=== PATIENT | female | born 1940 | race Caucasian/White ===

== ENCOUNTER 2018-05-12 02:09 | Emergency (ER) | payer OTHER ==
[2018-05-12] MEDS ORDERED: IPRATROPIUM BROM 0.5MG/2.5ML ONE (02:46)
[2018-05-12] MEDS ORDERED: ALBUTEROL 2.5 MG/3 ML NEB SOL ONE (02:46)
[2018-05-12] MEDS ORDERED: METHYLPREDNISOLONE 125 MG INJ ONE (02:46)
[2018-05-12 02:57] LABS: Arterial Blood Carboxyhemoglob 2.5 % (0-1.5); Blood O2 Saturation 88.3 % (92-98.5)
[2018-05-12 03:41] LABS: Absolute Lymphocytes (CBC) 5.1 K/uL (0.7-4.9); Absolute Monocytes 0.9 K/uL (0.1-1.3); Absolute Neutrophil 3.6 K/uL (1.8-8.0); Basophils % 0.4 % (0-1.3); Eosinophils % 1.2 % (0-4.4); Hematocrit 49.1 % (36.0-45.0); Lymphocytes % 52.3 % (15.3-44.8); MCH 31.8 pg (27.0-35.0); MCV 94.3 fL (80-100); MPV 8.5 fL (7.6-11.3); Monocytes % 8.8 % (3.3-12.3); RBC Red Blood Cell Count 5.21 M/uL (3.86-4.86)
[2018-05-12 03:43] LABS: Protime INR 0.92
[2018-05-12 04:03] LABS: Urine Blood NEGATIVE (NEG); Urine Glucose NEGATIVE (NEG); Urine Protein NEGATIVE (NEG)
[2018-05-12 04:03] LABS: ALT/SGPT 16 U/L (12-78); AST/SGOT 20 U/L (15-37); Albumin 3.6 g/dL (3.4-5.0); Alkaline Phosphatase 85 U/L (45-117); BUN Blood Urea Nitrogen 7 mg/dL (7-18); Bicarbonate 31 mmol/L (21-32); Bilirubin Direct < 0.1 mg/dL (0-0.2); Bilirubin Total 0.3 mg/dL (0.2-1.0); Glucose Level 85 mg/dL (74-106); Magnesium 2.1 mg/dL (1.8-2.4); NT PRO-BNP 465 pg/mL (<450); Potassium 3.9 mmol/L (3.5-5.1); Protein, Total 7.4 g/dL (6.4-8.2); Sodium Level 133 mmol/L (136-145); Troponin (Emerg Dept Use Only) 0.05 ng/mL (0.0-0.045)
--- NOTE | 2018-05-12 05:45 | EDPHYS ---
Physician Documentation [facility] Name: Siria Lauren Age: 77 yrs Sex: Female : 1940 Arrival Date: 05/12/2018 Time: 02:14 Bed 3 Private MD: ED Physician Rodriguez Allen HPI: 05/12 02:27 This 77 yrs old Female presents to ER via EMS with complaints of Shortness Of pkl Breath. 02:27 The patient has shortness of breath at rest. Onset: The symptoms/episode began/occurred pkl just prior to arrival, 5 hour(s) ago. Historical: - Allergies: 02:18 PENICILLINS; ak1 - Home Meds: 02:18 Abilify 5 mg Oral tab 1 tab once daily [Active]; amlodipine 5 mg tab 1 tab once daily ak1 [Active]; citalopram 40 mg tab 1 tab once daily [Active]; clonazepam 2 mg Oral tab 1 tab 3 times per day [Active]; gabapentin 600 mg Oral tab 1 tab 3 times per day [Active]; Davey 5-325 mg Oral tab 1 tab every 6 hours [Active]; ProAir HFA 90 mcg/actuation inhalation HFAA 2 puffs [Active]; Singulair 10 mg Oral tab 1 tab once daily [Active]; - PMHx: 02:18 Atrial Fib; CHF; COPD; Hypertension; ak1 - PSHx: 02:18 ; ak1 - Immunization history:: Adult Immunizations unknown. - Social history:: Smoking status: Patient uses tobacco products, smokes one-half pack cigarettes per day. - Ebola Screening: : No symptoms or risks identified at this time. ROS: 02:27 Eyes: Negative for injury, pain, redness, and discharge, ENT: Negative for injury, pkl pain, and discharge, Neck: Negative for injury, pain, and swelling, Cardiovascular: Negative for chest pain, palpitations, and edema. 02:27 Respiratory: Positive for shortness of breath, at rest. 02:27 Abdomen/GI: Negative for abdominal pain, nausea, vomiting, and diarrhea. 02:27 Back: Negative for acute changes. 02:27 : Negative for urinary symptoms. 02:27 MS/extremity: Negative for acute changes. 02:27 Skin: Negative for rash. 02:27 Neuro: Negative for altered mental status, loss of consciousness. Exam: 02:27 Head/Face: Normocephalic, atraumatic. Eyes: Pupils equal round and reactive to light, pkl extra-ocular motions intact. Lids and lashes normal. Conjunctiva and sclera are non-icteric and not injected. Cornea within normal limits. Periorbital areas with no swelling, redness, or edema. ENT: Nares patent. No nasal discharge, no septal abnormalities noted. Tympanic membranes are normal and external auditory canals are clear. Oropharynx with no redness, swelling, or masses, exudates, or evidence of obstruction, uvula midline. Mucous membranes moist. Neck: Trachea midline, no thyromegaly or masses palpated, and no cervical lymphadenopathy. Supple, full range of motion without nuchal rigidity, or vertebral point tenderness. No Meningismus. Chest/axilla: Normal chest wall appearance and motion. Nontender with no deformity. No lesions are appreciated. Cardiovascular: Regular rate and rhythm with a normal S1 and S2. No gallops, murmurs, or rubs. Normal PMI, no JVD. No pulse deficits. 02:27 Respiratory: the patient does not display signs of respiratory distress, Respirations: normal, Breath sounds: bronchial sounds, that are mild, are scattered, rhonchi, that are mild, are scattered. 02:27 Abdomen/GI: Bowel sounds: normal, Palpation: abdomen is soft and non-tender. 02:27 Back: Exam negative for acute changes. 02:27 : Exam negative for acute changes. 02:27 Musculoskeletal/extremity: Exam is negative for acute changes. 02:27 Skin: Exam negative for rash. 02:27 Neuro: Orientation: is normal, Mentation: is normal, Cranial nerves: grossly normal, Motor: is normal. Vital Signs: 02:18 BP 198 / 74; Pulse 61; Resp 20; Temp 98.7(O); Pulse Ox 93% on R/A; Weight 68.04 kg (R); ak1 Height 5 ft. 2 in. (157.48 cm) (R); Pain 0/10; 03:22 BP 177 / 61; Pulse 64; Resp 18; Pulse Ox 99% ; ea 04:29 BP 142 / 57; Pulse 77; Resp 19; Pulse Ox 95% on 2 lpm NC; Pain 0/10; ea 05:32 BP 127 / 84; Pulse 67; Resp 17; Pulse Ox 96% on NC; rr5 05:41 BP 161 / 66; Pulse 73; Resp 17; Pulse Ox 95% ; ea 02:18 Body Mass Index 27.44 (68.04 kg, 157.48 cm) ak1 MDM: 02:18 Patient medically screened. pkl 05:43 Data reviewed: vital signs, nurses notes, lab test result(s), EKG, radiologic studies, pkl CT scan, plain films. 05:44 ED course: Patient feeling better. Does not want to be admitted. Signed AMA. pkl 05/12 02:24 Order name: Basic Metabolic Panel; Complete Time: 04:07 pkl 05/12 02:24 Order name: CBC with Diff; Complete Time: 04:07 pkl 05/12 02:24 Order name: LFT's; Complete Time: 04:07 pkl 05/12 02:24 Order name: Magnesium; Complete Time: 04:07 pkl 05/12 02:24 Order name: NT PRO-BNP; Complete Time: 04:07 pkl 05/12 02:24 Order name: PT-INR; Complete Time: 04:07 pkl 05/12 02:24 Order name: Troponin (emerg Dept Use Only); Complete Time: 04:07 pkl 05/12 02:24 Order name: XRAY Chest (1 view) pkl 05/12 02:26 Order name: ABG; Complete Time: 04:07 pkl 05/12 02:52 Order name: Urine Dipstick--Ancillary (enter results); Complete Time: 04:07 ms 05/12 02:55 Order name: D-Dimer; Complete Time: 04:07 EDMS 05/12 04:09 Order name: CT Chest For PE Angio pkl 05/12 02:24 Order name: EKG; Complete Time: 02:24 pkl 05/12 02:24 Order name: Cardiac monitoring; Complete Time: 02:32 pkl 05/12 02:24 Order name: EKG - Nurse/Tech; Complete Time: 02:32 pkl 05/12 02:24 Order name: IV Saline Lock; Complete Time: 02:48 pkl 05/12 02:24 Order name: Labs collected and sent; Complete Time: 02:49 pkl 05/12 02:24 Order name: O2 Per Protocol; Complete Time: 02:49 pkl 05/12 02:24 Order name: O2 Sat Monitoring; Complete Time: 02:49 pkl Administered Medications: 02:44 Drug: SOLU-Medrol 125 mg Route: IVP; Site: left antecubital; ea 03:59 Follow up: Response: No adverse reaction; Marked relief of symptoms ao 03:15 Drug: Albuterol - atroVENT (3:1) (2.5 mg - 0.5 mg) 3 ml Route: Nebulizer; ea 03:59 Follow up: Response: No adverse reaction; Marked relief of symptoms ao Disposition: 05/12/18 05:45 Patient has left against medical advice. Impression: Acute exacerbation COPD. - Patients states they are going to Home. - Condition is Stable. SBAR form form. Follow up: Private Physician; When: 2 - 3 days; Reason: Re-evaluation by your physician. - Problem is new. - Symptoms have improved. Signatures: Dispatcher [employer] EDWI Rodriguez Allen MD MD pkl Ernestine Ramon RN RN ak1 Brandy Wan RN RN ea Ortiz, Alex RN ao Corrections: (The following items were deleted from the chart) 02:55 02:26 D-DIMER+COAG.LAB.BRZ ordered. [facility] 05:45 05:45 05/12/2018 05:45 Patients has left against medical advice. Patient states they pkl are going to Home. Condition is Stable. Forms are SBAR form. Follow up: Private Physician; When: 2 - 3 days; Reason: Re-evaluation by your physician. Problem is new. Symptoms have improved. pkl 05:56 05:45 05/12/2018 05:45 Patients has left against medical advice. Impression: Acute ea exacerbation COPD. Patient states they are going to Home. Condition is Stable. Forms are SBAR form. Follow up: Private Physician; When: 2 - 3 days; Reason: Re-evaluation by your physician. Problem is new. Symptoms have improved. pkl
--- NOTE | 2018-05-12 05:45 | ER ---
Nurse's Notes [facility] Name: Siria Lauren Age: 77 yrs Sex: Female : 1940 Arrival Date: 05/12/2018 Time: 02:14 Bed 3 Private MD: Diagnosis: Acute exacerbation COPD Presentation: 05/12 02:15 Presenting complaint: Patient states: SOB started at 2100. pt has had shoulder pain and ak1 is taking [place]. Transition of care: patient was not received from another setting of care. Onset of symptoms was May 12, 2018. Risk Assessment: Do you want to hurt yourself or someone else? Patient reports no desire to harm self or others. Initial Sepsis Screen: Does the patient meet any 2 criteria? No. Patient's initial sepsis screen is negative. Does the patient have a suspected source of infection? No. Patient's initial sepsis screen is negative. Care prior to arrival: 4L NC in route brought pt up to 98%. 02:15 Method Of Arrival: EMS: [facility] ak1 02:15 Acuity: APOLINAR 3 ak1 Triage Assessment: 02:18 General: Appears in no apparent distress. Behavior is cooperative. ak1 02:20 Respiratory: Reports labored breathing Onset: The symptoms/episode began/occurred ea yesterday, the patient has mild shortness of breath. Historical: - Allergies: 02:18 PENICILLINS; ak1 - Home Meds: 02:18 Abilify 5 mg Oral tab 1 tab once daily [Active]; amlodipine 5 mg tab 1 tab once daily ak1 [Active]; citalopram 40 mg tab 1 tab once daily [Active]; clonazepam 2 mg Oral tab 1 tab 3 times per day [Active]; gabapentin 600 mg Oral tab 1 tab 3 times per day [Active]; [place] 5-325 mg Oral tab 1 tab every 6 hours [Active]; ProAir HFA 90 mcg/actuation inhalation HFAA 2 puffs [Active]; Singulair 10 mg Oral tab 1 tab once daily [Active]; - PMHx: 02:18 Atrial Fib; CHF; COPD; Hypertension; ak1 - PSHx: 02:18 ; ak1 - Immunization history:: Adult Immunizations unknown. - Social history:: Smoking status: Patient uses tobacco products, smokes one-half pack cigarettes per day. - Ebola Screening: : No symptoms or risks identified at this time. Screenin:19 Abuse screen: Denies threats or abuse. Nutritional screening: No deficits noted. ea Tuberculosis screening: No symptoms or risk factors identified. Fall Risk None identified. Assessment: 02:17 General: Appears uncomfortable, Behavior is calm, cooperative, appropriate for age. ea Pain: Denies pain. Neuro: Level of Consciousness is awake, alert, obeys commands, Oriented to person, place, time, situation. Cardiovascular: Heart tones S1 S2 present Patient's skin is warm and dry. Respiratory: Airway is patent Respiratory effort is even, unlabored, Respiratory pattern is regular, symmetrical, Breath sounds with rhonchi in left posterior lower lobe, right posterior middle lobe and right posterior lower lobe. Respiratory: Pt on 2 L of O2 per n/c Parent/caregiver reports the patient having labored breathing since this morning. GI: No signs and/or symptoms were reported involving the gastrointestinal system. Abdomen is non-distended. Derm: Skin is pink, warm \T\ dry. 03:21 Reassessment: Patient and/or family updated on plan of care and expected duration. Pain ea level reassessed. Patient is alert, oriented x 3, equal unlabored respirations, skin warm/dry/pink. Pt on breathing treatment at this time. 04:00 Reassessment: Patient and/or family updated on plan of care and expected duration. Pain ea level reassessed. Patient is alert, oriented x 3, equal unlabored respirations, skin warm/dry/pink. Patient states symptoms have improved. 05:20 Reassessment: Patient and/or family updated on plan of care and expected duration. Pain ea level reassessed. Patient is alert, oriented x 3, equal unlabored respirations, skin warm/dry/pink. Patient states feeling better. Patient states symptoms have improved. 05:44 Reassessment: Patient and/or family updated on plan of care and expected duration. Pain ea level reassessed. Patient is alert, oriented x 3, equal unlabored respirations, skin warm/dry/pink. Provider at bedside updating pt on plan of care. Pt verbalized she did not want to be admitted. Pt verbalized the understanding of possible adverse effects of leaving AMA. Vital Signs: 02:18 BP 198 / 74; Pulse 61; Resp 20; Temp 98.7(O); Pulse Ox 93% on R/A; Weight 68.04 kg (R); ak1 Height 5 ft. 2 in. (157.48 cm) (R); Pain 0/10; 03:22 BP 177 / 61; Pulse 64; Resp 18; Pulse Ox 99% ; ea 04:29 BP 142 / 57; Pulse 77; Resp 19; Pulse Ox 95% on 2 lpm NC; Pain 0/10; ea 05:32 BP 127 / 84; Pulse 67; Resp 17; Pulse Ox 96% on NC; rr5 05:41 BP 161 / 66; Pulse 73; Resp 17; Pulse Ox 95% ; ea 02:18 Body Mass Index 27.44 (68.04 kg, 157.48 cm) ak1 ED Course: 02:14 Patient arrived in ED. ak1 02:16 Triage completed. ak1 02:17 Brandy Wan, JAGJIT is Primary Nurse. ea 02:18 Rodriguez Allen MD is Attending Physician. pkl 02:18 Arm band placed on Patient placed in an exam room, on a stretcher, on oxygen, on ak1 subassemblies wirer, on pulse oximetry, Patient notified of wait time. 02:19 Patient has correct armband on for positive identification. Bed in low position. Call ea light in reach. Side rails up X2. 02:40 Inserted saline lock: 20 gauge in left antecubital area, using aseptic technique. Blood ea collected. 04:00 XRAY Chest (1 view) In Process Unspecified. EDMS 04:19 Notified ED physician of a critical lab result(s). d-dimer 1128. ak1 04:50 Inserted saline lock: 22 gauge in right antecubital area, using aseptic technique. ea 04:54 Radiology exam delayed due to IV insertion attempt and/or patient not having kw1 appropriate IV at this time. 04:[address] via stretcher. kw1 05:10 CT completed. Patient tolerated procedure well. Patient moved back from CT. kw1 05:12 CT Chest For PE Angio In Process Unspecified. EDMS 05:55 No provider procedures requiring assistance completed. IV discontinued, intact, ea bleeding controlled, No redness/swelling at site. Pressure dressing applied. Administered Medications: 02:44 Drug: SOLU-Medrol 125 mg Route: IVP; Site: left antecubital; ea 03:59 Follow up: Response: No adverse reaction; Marked relief of symptoms ao 03:15 Drug: Albuterol - atroVENT (3:1) (2.5 mg - 0.5 mg) 3 ml Route: Nebulizer; ea 03:59 Follow up: Response: No adverse reaction; Marked relief of symptoms ao Outcome: 05:56 AMA AMA form signed ea 05:56 Condition: improved 05:56 Patient left the ED. ea Signatures: Dispatcher [employer] EDMS Rodriguez Allen MD MD pkl Krenek, Amber RN RN ak1 Bo Johns RN RN Brandy Mckoy RN RN Agnieszka Martin1 Gavin Bliss, RN RN rr5
--- NOTE | 2018-05-12 08:00 | RAD REPORT ---
EXAM DESCRIPTION: CT - Chest For Pe Angio - 05/12/2018 7:09 am CLINICAL HISTORY: Chest pain and shortness of breath COMPARISON: January 2018 TECHNIQUE: Dynamically enhanced axial 3 mm thick images of the chest were obtained during administra tion of <100> mL Isovue 370 IV contrast. Coronal and oblique reconstruction images were generated and reviewed. Exam utilizes a protocol for optimal evaluation of pulmonary arterial tree.Prelim report w as generated virtual radiologic and prior to dictation Maximum intensity projections 3D imaging was utilized All CT scans are performed using dose optimization technique as appropriate and may include automated exposure control or mA/KV adjustment according to patient size. FINDINGS: A pulmonary embolus is not seen. A thoracic aortic aneurysm is not noted. A pleural effusion is not seen. A pericardial effusion is not seen. A lung consolidation is not present. 11 millimeter left lower lobe nodule image 67 is mildly enlarged . IMPRESSION: Negative for a pulmonary embolism. Two enlargement of an 11 millimeter left lower lobe nodule may represent neoplasm. A nuclear medicine PET-CT scan recommended
--- NOTE | 2018-05-12 08:24 | RAD REPORT ---
EXAM DESCRIPTION: Elsa Single View05/12/2018 4:00 am CLINICAL HISTORY: Shortness of breath COMPARISON: August 2017 FINDINGS: The patient's known left lower lobe pulmonary nodule is not clearly seen on this exam. Ot herwise lungs appear clear. The heart is mildly enlarged
--- NOTE | 2018-05-12 13:55 | EKG ---
Test Date: 2018-05-12 Test Time: 02:18:25 Manager [employer]: ANGEL MEASUREMENT RESULTS: Intervals: Rate: 54 MN: 148 QRSD: 96 QT: 442 QTc: 419 [place]: P: MN: 148 QRS: -36 T: 16 INTERPRETIVE STATEMENTS: Sinus bradycardia Left axis deviation Abnormal ECG Compared to ECG 09/15/2017 08:28:18 Left-axis deviation now present Electronically Signed On 05-12-18 13:53:21 CDT by Kg West
== END 2018-05-12 05:56 | disposition left against medical advice (07) ==
LOC: ER 02:09
DX: J44.1 Chronic obstructive pulmonary disease with (acute) exacerbation (principal); I10 Essential (primary) hypertension; I48.91 Unspecified atrial fibrillation; I50.9 Heart failure, unspecified; Z88.0 Allergy status to penicillin
CPT/HCPCS: 36415; 71045; 71275; 80048; 80076; 81003; 82805; 83735; 83880; 84484; 85025; 85379; 85610; 93005; 94640; 96374; 99285; J2930; Q9967

== ENCOUNTER 2018-06-14 21:54 | Observation (INO) | payer OTHER ==
[2018-06-14 22:45] LABS: Protime INR 0.92
[2018-06-14 22:49] LABS: Absolute Lymphocytes (CBC) 5.3 K/uL (0.7-4.9); Absolute Monocytes 1.1 K/uL (0.1-1.3); Absolute Neutrophil 5.5 K/uL (1.8-8.0); Basophils % 0.5 % (0-1.3); Eosinophils % 0.4 % (0-4.4); Hematocrit 51.1 % (36.0-45.0); Lymphocytes % 44.4 % (15.3-44.8); MCH 31.7 pg (27.0-35.0); MCV 93.9 fL (80-100); MPV 8.6 fL (7.6-11.3); Monocytes % 8.9 % (3.3-12.3); RBC Red Blood Cell Count 5.44 M/uL (3.86-4.86)
[2018-06-14 23:16] LABS: ALT/SGPT 17 U/L (12-78); AST/SGOT 17 U/L (15-37); Albumin 3.6 g/dL (3.4-5.0); Alkaline Phosphatase 91 U/L (45-117); BUN Blood Urea Nitrogen 4 mg/dL (7-18); Bicarbonate 27 mmol/L (21-32); Bilirubin Direct 0.1 mg/dL (0-0.2); Bilirubin Total 0.4 mg/dL (0.2-1.0); Glucose Level 79 mg/dL (74-106); Potassium 3.6 mmol/L (3.5-5.1); Protein, Total 7.4 g/dL (6.4-8.2); Sodium Level 130 mmol/L (136-145)
[2018-06-14] MEDS ORDERED: LEVALBUTEROL 1.25 MG/3 ML NEB ONE (23:59)
--- NOTE | 2018-06-15 00:12 | ER ---
Nurse's Notes [facility] Name: Siria Lauren Age: 78 yrs Sex: Female : 1940 Arrival Date: 06/14/2018 Time: 21:55 Bed 24 Private MD: Diagnosis: Suicidal ideations;Chronic obstructive pulmonary disease, unspecified Presentation: 06/14 22:09 Presenting complaint: EMS states: "we were called to the scene by PD for a pt with jd3 suicidal thoughts. She denies any self harm or medical problems, but has stated ' I just want to lay down and .' ". Transition of care: patient was not received from another setting of care. Onset of symptoms was June 14, 2018. Risk Assessment: Do you want to hurt yourself or someone else? Patient reports desire/thoughts of hurting themselves or someone else. Provider notified. Initial Sepsis Screen: Does the patient meet any 2 criteria? No. Patient's initial sepsis screen is negative. Does the patient have a suspected source of infection? No. Patient's initial sepsis screen is negative. Care prior to arrival: None. 22:09 Method Of Arrival: EMS: [facility] jd3 22:09 Acuity: APOLINAR 2 jd3 Historical: - Allergies: 22:20 PENICILLINS; jd3 22:20 Symbicort; jd3 22:20 Tetanus Vaccines \\T\\ Toxoid; jd3 22:20 codeine sulfate; jd3 - Home Meds: 22:20 clonazepam 2 mg Oral tab 0.5 mg 2 times per day [Active]; gabapentin 600 mg Oral tab 1 jd3 tab twice a day [Active]; ProAir HFA 90 mcg/actuation inhalation HFAA 2 puffs [Active]; atorvastatin 20 mg oral tab 1 tab once daily [Active]; budesonide-formoterol inhalation inhalation 2 puffs 2 times per day [Active]; furosemide 40 mg Oral tab 1 tab once daily [Active]; pantoprazole 40 mg oral TbEC 1 tab once daily [Active]; Xarelto 10 mg oral tab 2 tab once daily [Active]; Sorine oral oral [Active]; - PMHx: 22:20 Atrial Fib; CHF; COPD; Hypertension; jd3 - PSHx: 22:20 ; jd3 - Immunization history:: Adult Immunizations up to date, Flu vaccine is up to date. - Social history:: Smoking status: Patient uses tobacco products, smokes one-half pack cigarettes per day. - Ebola Screening: : Patient negative for fever greater than or equal to 101.5 degrees Fahrenheit, and additional compatible Ebola Virus Disease symptoms. - Family history:: not pertinent. - Hospitalizations: : No recent hospitalization is reported. Screenin:22 Abuse screen: Denies threats or abuse. Nutritional screening: No deficits noted. jd3 Tuberculosis screening: No symptoms or risk factors identified. Fall Risk IV access (20 points). Ambulatory Aid- None/Bed Rest/Nurse Assist (0 pts). Gait- Normal/Bed Rest/Wheelchair (0 pts) Mental Status- Overestimates/Forgets Limitations (15 pts.). Total Davis Fall Scale indicates Low Risk Score (25-44 pts). Fall prevention measures have been instituted. Side Rails Up X 2 Placed close to Nursing Station Frequent Obs/Assesments occuring. Assessment: 22:00 General: Appears in no apparent distress. comfortable, Behavior is calm, cooperative, aa1 appropriate for age, quiet. Pain: Denies pain. Neuro: Level of Consciousness is awake, alert, obeys commands, Oriented to person, place, time, situation, Moves all extremities. Full function Gait is steady, Speech is normal. Cardiovascular: Heart tones S1 S2 present Rhythm is regular. Respiratory: Airway is patent Respiratory effort is even, unlabored, Respiratory pattern is regular, symmetrical, Breath sounds are coarse bilaterally. GI: No signs and/or symptoms were reported involving the gastrointestinal system. : No signs and/or symptoms were reported regarding the genitourinary system. EENT: No signs and/or symptoms were reported regarding the EENT system. Derm: Skin is intact, is healthy with good turgor, Skin is pink, warm \\T\\ dry. Musculoskeletal: Circulation, motion, and sensation intact. Capillary refill < 3 seconds. 23:00 Reassessment: Patient appears in no apparent distress at this time. Patient and/or aa1 family updated on plan of care and expected duration. Pain level reassessed. Patient is alert, oriented x 3, equal unlabored respirations, skin warm/dry/pink. Awaiting provider reassessment. 23:55 Reassessment: Patient appears in no apparent distress at this time. Patient and/or aa1 family updated on plan of care and expected duration. Pain level reassessed. Patient is alert, oriented x 3, equal unlabored respirations, skin warm/dry/pink. Per MD, pt to be admitted; awaiting admission orders at this time. Pt resting quietly with pleasant affect. an sitter at bedside. 06/15 03:25 Reassessment: charting continued in [facility]. [facility] Psych: 03:23 Subjective: Patient's mood is sad. Objective: Patient is cooperative, Speech is normal. jd3 Interventions: Removed personal items and placed in bag. Patient placed in hospital gown. Searched person for dangerous items. Urine collected and sent for urine drug test. Belonging list filled out. Suicide Risk Assessment: Sad Person Scale: Sex of patient: Female: Score 0 points. Age of patient: Score 1 point if patient is over 65. Depression: Score 1 point if signs of depression are present. Previous Attempt: Score 0 point if patient has not previously attempted suicide. Substance Abuse: Score 1 point if patient abuses alcohol or drugs. Rational Thinking: Score 1 point if patient is lacking rational thinking. Social Support: Score 0 if social support is present/available. Organized Plan: Score 0 if patient did not have an organized plan in place. Relationship: Score 1 point if patient is , , , or for a single male Chronic Sickness: Score 0 point if patient does not have a chronic illness, debilitating, or severe disorder. TOTAL POINTS: If total points are 5-6, proposed clinical action is to strongly consider hospitalization, depending upon confidence in the follow-up arrangement. Implement suicide precautions. Safety Checks: Personal items have been removed. Door is open. No visitors are present at this time. Patient uses. Vital Signs: 06/14 22:21 BP 133 / 84; Pulse 78; Resp 18 S; Temp 97.8(O); Pulse Ox 90% on R/A; Weight 72.57 kg jd3 (R); Height 5 ft. 2 in. (157.48 cm) (R); Pain 0/10; 23:35 BP 151 / 78; Pulse 75; Resp 20; Pulse Ox 100% on 2 lpm NC; mt 06/15 01:03 BP 144 / 71; Pulse 67; Resp 18; Pulse Ox 95% on 2 lpm NC; mt 02:06 BP 154 / 82; Pulse 70; Resp 18; Pulse Ox 94% on 2 lpm NC; mt 07:30 BP 154 / 84; Pulse 86; Resp 17; Temp 98.2(O); Pulse Ox 98% on 2 lpm NC; mh5 08:29 BP 153 / 77; Pulse 88; Resp 16; Pulse Ox 98% on 2 lpm NC; mh5 06/14 22:21 Body Mass Index 29.26 (72.57 kg, 157.48 cm) jd3 ED Course: 06/14 21:55 Patient arrived in ED. al2 21:57 Magdaleno Arita MD is Attending Physician. rn 22:00 Patient has correct armband on for positive identification. Placed in gown. Bed in low aa1 position. Pulse ox on. NIBP on. Sitter at bedside. 22:12 Triage completed. jd3 22:13 Inserted saline lock: 22 gauge in right antecubital area, using aseptic technique. mt Blood collected. 22:21 Arm band placed on. jd3 22:30 Safety checks: Items removed: yes. Door open/sign placed on door: yes. Family/friend mt present: no. Sitter present: Yes. Other: Giselle material liaison,sitting one on one with patient. 22:45 Safety checks: Items removed: yes. Door open/sign placed on door: yes. Family/friend mt present: no. Sitter present: Yes. 23:00 Safety checks: Items removed: yes. Door open/sign placed on door: yes. Family/friend mt present: no. Sitter present: Yes. 23:15 Safety checks: Items removed: yes. Door open/sign placed on door: yes. Family/friend mt present: yes. Sitter present: Yes. 23:30 Urine collected: clean catch specimen, clear. aa1 23:30 Safety checks: Items removed: yes. Door open/sign placed on door: yes. Family/friend mt present: yes. Sitter present: Yes. 23:44 Funmilayo Gao, JAGJIT is Primary Nurse. aa1 23:45 Safety checks: Items removed: yes. Door open/sign placed on door: yes. Family/friend mt present: yes. Sitter present: Yes. 06/15 00:00 Safety checks: Items removed: yes. Door open/sign placed on door: yes. Sitter present: mt Yes. 00:10 Rajesh Simon MD is Hospitalizing Provider. rn 00:15 Safety checks: Items removed: yes. Door open/sign placed on door: yes. Family/friend mt present: yes. Sitter present: Yes. 00:30 Safety checks: Items removed: yes. Door open/sign placed on door: yes. Family/friend mt present: yes. Sitter present: Yes. 00:45 Safety checks: Items removed: yes. Door open/sign placed on door: yes. Family/friend mt present: yes. Sitter present: Yes. 01:00 Safety checks: Items removed: yes. Door open/sign placed on door: yes. Family/friend mt present: yes. Sitter present: Yes. 01:15 Safety checks: Items removed: yes. Door open/sign placed on door: yes. Family/friend mt present: yes. Sitter present: Yes. 01:30 Safety checks: Items removed: yes. Door open/sign placed on door: yes. Family/friend mt present: yes. Sitter present: Yes. 01:45 Safety checks: Items removed: yes. Door open/sign placed on door: yes. Family/friend mt present: yes. Sitter present: Yes. 02:00 Safety checks: Items removed: yes. Door open/sign placed on door: yes. Family/friend mt present: yes. Sitter present: Yes. 02:15 Safety checks: Items removed: yes. Door open/sign placed on door: yes. Family/friend mt present: no. Sitter present: Yes. 02:30 Safety checks: Items removed: yes. Door open/sign placed on door: yes. Family/friend mt present: no. Sitter present: Yes. 02:45 Safety checks: Items removed: yes. Door open/sign placed on door: yes. Family/friend mt present: no. Sitter present: Yes. 03:25 No provider procedures requiring assistance completed. Patient admitted, IV remains in jd3 place. 07:00 Safety checks: Items removed: yes. Door open/sign placed on door: yes. Family/friend mh5 present: no. Sitter present: Yes. 07:15 Safety checks: Items removed: yes. Door open/sign placed on door: yes. Family/friend mh5 present: yes. Family/friends encouraged to stay with patient. Sitter present: Yes. 07:30 Safety checks: Items removed: yes. Door open/sign placed on door: yes. Family/friend mh5 present: yes. Sitter present: Yes. Safety checks: Items removed: Door open/sign placed on door: Family/friend present: Sitter present: Yes. 07:45 Safety checks: Items removed: yes. Door open/sign placed on door: yes. Family/friend mh5 present: yes. Sitter present: Yes. 08:00 Safety checks: Items removed: yes. Door open/sign placed on door: yes. Family/friend mh5 present: yes. Sitter present: Yes. 08:15 Safety checks: Items removed: yes. Door open/sign placed on door: yes. Family/friend mh5 present: yes. Sitter present: Yes. 08:30 Safety checks: Items removed: yes. Door open/sign placed on door: yes. Family/friend mh5 present: yes. Sitter present: Yes. 08:45 Safety checks: Items removed: yes. Door open/sign placed on door: yes. Family/friend mh5 present: yes. Sitter present: Yes. 08:51 Diet: Patient given a heart healthy meal tray. mh5 09:00 Safety checks: Items removed: yes. Door open/sign placed on door: yes. Family/friend mh5 present: yes. Family/friends encouraged to stay with patient. Sitter present: Yes. Administered Medications: 06/14 23:54 Drug: Xopenex 1.25 mg Route: Inhalation; aa1 06/15 09:53 Not Given (charted in [employer]): SOLU-Medrol 125 mg IVP once ss 09:53 Not Given (charted in [employer]): Xopenex 2.5 mg Inhalation once ss 09:53 Not Given (charted in M[facility]): predniSONE 20 mg PO once ss Outcome: 00:11 Decision to Hospitalize by Provider. rn 03:25 Admitted to ER Hold. Please see [facility] for further documentation. jd3 03:25 Condition: stable 03:25 Instructed on the need for admit, Demonstrated understanding of instructions. 14:26 Patient left the ED. mary ann Signatures: Funmilayo Gao RN RN aa1 Tayler Arango RN RN aj Nieto, Roman, MD MD rn Martinez, Maria [facility] Giselle Sawyer mt, Jonathon RN RN jd3 Gladys, Olivia garber2 Brigida Jauregui RN ss Corrections: (The following items were deleted from the chart) 01:04 06/14 23:35 BP 151 / 78; Pulse 75bpm; Resp 20bpm; Pulse Ox 100% 3 lpm Nasal Cannula; [facility] 06/15 08:50 08:37 Safety checks: Items removed: yes. Door open/sign placed on door: yes. [facility] Family/friend present: yes. Sitter present: Yes. [facility]
--- NOTE | 2018-06-15 00:12 | EDPHYS ---
Physician Documentation [facility] Name: Siria Lauren Age: 78 yrs Sex: Female : 1940 Arrival Date: 06/14/2018 Time: 21:55 Bed 24 Private MD: ED Physician Magdaleno Arita HPI: 06/14 23:41 This 78 yrs old Female presents to ER via EMS with complaints of suicidal rn ideation. 23:41 The patient presents to the emergency department with depression, suicide ideation. rn Onset: The symptoms/episode began/occurred at an unknown time. Severity of symptoms: At their worst the symptoms were moderate in the emergency department the symptoms are unchanged. The patient has experienced similar episodes in the past. Family called 911 because of threats to harm herself, in hospice, and patient with depression, no hallucinations, has been taking husbands codeine, and drinking, no attempt or overt overdose. . Historical: - Allergies: 22:20 PENICILLINS; jd3 22:20 Symbicort; jd3 22:20 Tetanus Vaccines \T\ Toxoid; jd3 22:20 codeine sulfate; jd3 - Home Meds: 22:20 clonazepam 2 mg Oral tab 0.5 mg 2 times per day [Active]; gabapentin 600 mg Oral tab 1 jd3 tab twice a day [Active]; ProAir HFA 90 mcg/actuation inhalation HFAA 2 puffs [Active]; atorvastatin 20 mg oral tab 1 tab once daily [Active]; budesonide-formoterol inhalation inhalation 2 puffs 2 times per day [Active]; furosemide 40 mg Oral tab 1 tab once daily [Active]; pantoprazole 40 mg oral TbEC 1 tab once daily [Active]; Xarelto 10 mg oral tab 2 tab once daily [Active]; Sorine oral oral [Active]; - PMHx: 22:20 Atrial Fib; CHF; COPD; Hypertension; jd3 - PSHx: 22:20 ; jd3 - Immunization history:: Adult Immunizations up to date, Flu vaccine is up to date. - Social history:: Smoking status: Patient uses tobacco products, smokes one-half pack cigarettes per day. - Ebola Screening: : Patient negative for fever greater than or equal to 101.5 degrees Fahrenheit, and additional compatible Ebola Virus Disease symptoms. - Family history:: not pertinent. - Hospitalizations: : No recent hospitalization is reported. ROS: 23:41 Constitutional: Negative for fever, chills, and weight loss, Eyes: Negative for injury, rn pain, redness, and discharge, Neck: Negative for injury, pain, and swelling, Cardiovascular: Negative for chest pain, palpitations, and edema, Respiratory: Negative for shortness of breath, cough, wheezing, and pleuritic chest pain, Abdomen/GI: Negative for abdominal pain, nausea, vomiting, diarrhea, and constipation, MS/Extremity: Negative for injury and deformity, Skin: Negative for injury, rash, and discoloration, Neuro: Negative for headache, weakness, numbness, tingling, and seizure, Psych: + depression and suicidal ideation Exam: 23:41 Constitutional: This is a well developed, well nourished patient who is awake, alert, rn and in no acute distress. Head/Face: Normocephalic, atraumatic. Eyes: Pupils equal round and reactive to light, extra-ocular motions intact. Lids and lashes normal. Conjunctiva and sclera are non-icteric and not injected. Cornea within normal limits. Periorbital areas with no swelling, redness, or edema. Cardiovascular: Regular rate and rhythm with a normal S1 and S2. No gallops, murmurs, or rubs. Normal PMI, no JVD. No pulse deficits. Respiratory: faint bilateral wheezing, no tachypnea Abdomen/GI: soft, non-tender MS/ Extremity: Pulses equal, no cyanosis. Neurovascular intact. Full, normal range of motion. Equal circumference. Neuro: Awake and alert, GCS 15, oriented to person, place, time, and situation. Cranial nerves II-XII grossly intact. Motor strength 5/5 in all extremities. Sensory grossly intact. Cerebellar exam normal. Normal gait. Vital Signs: 22:21 BP 133 / 84; Pulse 78; Resp 18 S; Temp 97.8(O); Pulse Ox 90% on R/A; Weight 72.57 kg jd3 (R); Height 5 ft. 2 in. (157.48 cm) (R); Pain 0/10; 23:35 BP 151 / 78; Pulse 75; Resp 20; Pulse Ox 100% on 2 lpm NC; mt 12/03 01:03 BP 144 / 71; Pulse 67; Resp 18; Pulse Ox 95% on 2 lpm NC; mt 02:06 BP 154 / 82; Pulse 70; Resp 18; Pulse Ox 94% on 2 lpm NC; mt 07:30 BP 154 / 84; Pulse 86; Resp 17; Temp 98.2(O); Pulse Ox 98% on 2 lpm NC; mh5 08:29 BP 153 / 77; Pulse 88; Resp 16; Pulse Ox 98% on 2 lpm NC; mh5 06/14 22:21 Body Mass Index 29.26 (72.57 kg, 157.48 cm) jd3 MDM: 06/14 21:57 Patient medically screened. rn 06/15 00:08 Differential diagnosis: depression, suicidal ideation. Data reviewed: vital signs, rn nurses notes, lab test result(s), and as a result, I will admit patient. Counseling: I had a detailed discussion with the patient and/or guardian regarding: the historical points, exam findings, and any diagnostic results supporting the discharge/admit diagnosis, lab results, radiology results, the need for further work-up and treatment in the hospital. Admission orders: after a detailed discussion of the patient's condition and case, the admit orders are written by me. 12 22:04 Order name: Acetaminophen rn 06/14 22:04 Order name: Basic Metabolic Panel rn 06/14 22:04 Order name: CBC with Diff rn 06/14 22:04 Order name: ETOH Level rn 06/14 22:04 Order name: Hepatic Function rn 06/14 22:04 Order name: PT-INR rn 06/14 22:04 Order name: Ptt, Activated rn 06/14 22:04 Order name: Salicylate rn 06/14 22:04 Order name: Urine Drug Screen rn 06/14 22:47 Order name: Protime (+INR); Complete Time: 23:26 EDMS 06/14 22:47 Order name: PTT, Activated Partial Thromb; Complete Time: 23:26 EDMS 06/14 22:49 Order name: Salicylates Level; Complete Time: 23:26 EDMS 06/14 22:51 Order name: CBC with Automated Diff; Complete Time: 23:26 EDMS 06/14 23:23 Order name: Basic Metabolic Panel; Complete Time: 23:26 EDMS 06/14 22:04 Order name: EKG; Complete Time: 22:06 rn 06/14 22:04 Order name: EKG - Nurse/Tech; Complete Time: 22:25 rn 06/14 22:04 Order name: IV Saline Lock; Complete Time: 22:13 rn 06/14 22:04 Order name: Labs collected and sent; Complete Time: 22:13 rn 06/14 22:04 Order name: Urine Dipstick-Ancillary (obtain specimen); Complete Time: 23:51 rn 06/14 23:23 Order name: Liver (Hepatic) Function; Complete Time: 23:26 EDMS 06/14 23:23 Order name: Acetaminophen Level; Complete Time: 23:26 EDMS 06/14 23:23 Order name: Alcohol Serum/Plasma; Complete Time: 23:26 EDMS 06/14 23:53 Order name: Urine Dipstick--Ancillary (enter results) em1 06/15 00:44 Order name: Urine Drug Screen; Complete Time: 08:05 EDMS 06/15 00:58 Order name: Urine Dipstick-Ancillary; Complete Time: 08:05 EDMS 06/15 09:36 Order name: Glucose, Ancillary Testing EDMS Administered Medications: 06/14 23:54 Drug: Xopenex 1.25 mg Route: Inhalation; aa1 06/15 09:53 Not Given (charted in [employer]): SOLU-Medrol 125 mg IVP once ss 09:53 Not Given (charted in [employer]): Xopenex 2.5 mg Inhalation once ss 09:53 Not Given (charted in [employer]): predniSONE 20 mg PO once ss Disposition: 06/15/18 00:11 Hospitalization ordered by Rajesh Simon for Observation. Preliminary diagnosis are Suicidal ideations, Chronic obstructive pulmonary disease, unspecified. - Bed requested for Telemetry/MedSurg (observation). - Status is Observation. aj - Condition is Stable. - Problem is new. - Symptoms have improved. UTI on Admission? No Signatures: Dispatcher [employer] EDMS Agnieszka White RN RN kl Kern, Alissa, RN RN aa1 Tayler Arango RN RN aj Anderson, Corey, MD MD cha Nieto, Roman, MD MD rn Fitzgerald, Diane, RN RN df Davies, Jonathon, RN RN jd3 Smirch, Shelby RN ss Corrections: (The following items were deleted from the chart) 02:08 00:11 Hospitalization Ordered by Rajesh Simon MD for Observation. Preliminary kl diagnosis is Suicidal ideations; Chronic obstructive pulmonary disease, unspecified. Bed requested for Telemetry/MedSurg (observation). Status is Observation. Condition is Stable. Problem is new. Symptoms have improved. UTI on Admission? No. rn 12:49 02:08 06/15/2018 00:11 Hospitalization Ordered by Rajesh Simon MD for Observation. df Preliminary diagnosis is Suicidal ideations; Chronic obstructive pulmonary disease, unspecified. Bed requested for [facility] ER HOLD. Status is Observation. Condition is Stable. Problem is new. Symptoms have improved. UTI on Admission? No. kl 14:26 12:49 06/15/2018 00:11 Hospitalization Ordered by Rajesh Simon MD for Observation. aj Preliminary diagnosis is Suicidal ideations; Chronic obstructive pulmonary disease, unspecified. Bed requested for Telemetry/MedSurg (observation). Status is Observation. Condition is Stable. Problem is new. Symptoms have improved. UTI on Admission? No. df
[2018-06-15 00:43] LABS: Barbiturates NEGATIVE (NEGATIVE); Benzodiazepines NEGATIVE (NEGATIVE); Cocaine NEGATIVE (NEGATIVE); METHAMPHETAM NEGATIVE (NEGATIVE); Methadone NEGATIVE (NEGATIVE); Opiates NEGATIVE (NEGATIVE); Phencyclidine NEGATIVE (NEGATIVE); THC Cannibis NEGATIVE (NEGATIVE)
[2018-06-15 00:57] LABS: Urine Blood NEGATIVE (NEG); Urine Glucose NEGATIVE (NEG); Urine Protein NEGATIVE (NEG); Urine Specific Gravity <1.005 (1.005-1.030); Urine pH 5.5 (5.0-7.0)
[2018-06-15] MEDS ORDERED: MORPHINE 2 MG/ML SYR IV PRN (02:39)
[2018-06-15] MEDS ORDERED: ONDANSETRON 4 MG/2 ML VIAL IV PRN (02:39)
[2018-06-15] MEDS ORDERED: ACETAMINOPHEN 500 MG TAB PO PRN (02:39)
[2018-06-15] MEDS: NA CHLORIDE 0.9% 1,000 ML IV SCH ×3 (03:00→16:20)
[2018-06-15] MEDS ORDERED: NA CHLORIDE 0.9% 1,000 ML ONE (03:08)
--- NOTE | 2018-06-15 07:02 | P.HP ---
Certification for Inpatient Patient admitted to: Inpatient With expected LOS: >2 Midnights Patient will require the following post-hospital care: None Practitioner: I am a practitioner with admitting privileges, knowledge of patient current condition, hospital course, and medical plan of care. Services: Services provided to patient in accordance with Admission requirements found in Title 42 Section 412.3 of the Code of Federal Regulations Patient History Date of Service: 06/15/18 Reason for admission: Suicidal ideation History of Present Illness: Patient is a 78-year-old female who presents to the hospital with alcohol intoxication and she is suicidal. Her is on hospice care for some type of head and neck cancer. There is also question of lung cancer. She states he is at home dining. She has been with him since she was 18 which is for almost 60 years. They have 1 child together in the have 3 children through another marriage. She does not have a lot of support at this time and she just is really saddened by his condition. She does not like to see him suffering in this manner. She felt very depressed so she decided to start drinking. After her drinking she became saddened to the point that she wanted to take her life. She has thought of some different things but has not come to the point were she has made a definitive plan. She was brought into the hospital for evaluation. Allergies codeine Allergy (Verified 09/12/17 10:35) unknown epinephrine [From Adrenalin] Allergy (Verified 09/12/17 10:35) unknown Penicillins Allergy (Verified 09/12/17 10:10) Unknown roflumilast [From Daliresp] Allergy (Verified 09/12/17 10:35) unknown Tetanus Vaccines and Toxoid Allergy (Verified 09/12/17 10:35) unknown Home Medications: Gabapentin [Neurontin] 600 mg PO BID 08/23/17 Albuterol Sulfate [Proair Hfa] 2 puff IH TID PRN #1 hfa.aer.ad 08/25/17 Atorvastatin Calcium [Lipitor*] 20 mg PO BEDTIME #30 tab 08/25/17 Budesonide/Formoterol Fumarate [Symbicort 160-4.5 Mcg Inhaler] 2 puff IH BID #1 hfa.aer.ad 08/25/17 Furosemide [Lasix] 40 mg PO DAILY #30 tab 08/25/17 Pantoprazole [Protonix Tab*] 40 mg PO DAILYAC #30 tab 08/25/17 Rivaroxaban [Xarelto] 20 mg PO DAILY #30 tab 08/25/17 Sotalol HCl [Betapace*] 80 mg PO BID 6AM 6PM #60 tab 08/25/17 clonazePAM [Clonazepam] 0.5 tab PO BID 06/15/18 - Past Medical/Surgical History Has patient received pneumonia vaccine in the past: No Diabetic: No -: Hypertension -: COPD -: Tobacco abuse -: Restless leg syndrome -: Depression -: C section Psychosocial/ Personal History: The patient is . She has 4 children. She currently takes care of her who is terminally ill. - Family History Mother Medical History: Heart disease, Hypertension, Lung disease, Cancer - Social History Smoking Status: Current every day smoker Alcohol use: Yes CD- Drugs: No Caffeine use: No Place of Residence: Home Review of Systems 10-point ROS is otherwise unremarkable Physical Examination - Vital Signs Temperature: 98 F Blood Pressure: 151/81 Pulse: 76 Respirations: 16 Pulse Ox (%): 99 - Physical Exam General: Alert, In no apparent distress, Oriented x3 HEENT: Atraumatic, PERRLA, Mucous membr. moist/pink, EOMI, Sclerae nonicteric Neck: Supple, 2+ carotid pulse no bruit, No LAD, Without JVD or thyroid abnormality Respiratory: Clear to auscultation bilaterally, Normal air movement Cardiovascular: Regular rate/rhythm, Normal S1 S2, No murmurs Gastrointestinal: Normal bowel sounds, Soft and benign, Non-distended, No tenderness Musculoskeletal: No clubbing, No swelling, No tenderness Integumentary: No rashes Neurological: Normal gait, Normal speech, Normal strength at 5/5 x4 extr, Normal tone, Sensation intact, Cranial nerves 3-12 intact, Normal affect Lymphatics: No axilla or inguinal lymphadenopathy - Studies Laboratory Data (last 24 hrs) 06/14/18 22:32: PT 10.8, INR 0.92, APTT 27.4 06/14/18 22:32: WBC 11.9 H, Hgb 17.2 H, Hct 51.1 H, Plt Count 218 06/14/18 22:32: Sodium 130 L, Potassium 3.6, BUN 4 L, Creatinine 0.60, Glucose 79, Total Bilirubin 0.4, AST 17, ALT 17, Alkaline Phosphatase 91 Assessment & Plan - Problems (Diagnosis) (1) Suicidal ideation Current Visit: Yes Status: Acute (2) Alcohol abuse, continuous drinking behavior Current Visit: Yes Status: Acute (3) Grieving family Current Visit: Yes Status: Acute (4) CHF (congestive heart failure) Onset Date: 08/25/17 Current Visit: No Status: Acute Qualifiers: (5) Carotid stenosis Current Visit: No Status: Acute Qualifiers: (6) Lung nodule Current Visit: No Status: Acute (7) Atrial fibrillation with RVR Onset Date: 08/25/17 Current Visit: No Status: Chronic (8) COPD (chronic obstructive pulmonary disease) Onset Date: 08/25/17 Current Visit: No Status: Chronic Qualifiers: (9) Depression Onset Date: 08/25/17 Current Visit: No Status: Chronic Qualifiers: - Plan Plan: 1. Neuro checks hourly 2. Suicide protocol 3. Contact [facility] for evaluation for inpatient psychiatric placement for major depressive disorder 4. IV hydration 5. Multi vitamins as needed 6. GI and DVT prophylaxis - Advance Directives Does patient have a Living Will: No Does patient have a Durable POA for Healthcare: No
--- NOTE | 2018-06-15 07:39 | EKG ---
Test Date: 2018-06-14 Test Time: 22:15:08 Press Assistant And Feeder: JEAN MEASUREMENT RESULTS: Intervals: Rate: 71 MT: 164 QRSD: 100 QT: 416 QTc: 452 Pelican: P: 85 MT: 164 QRS: -63 T: 51 INTERPRETIVE STATEMENTS: Sinus rhythm with marked sinus arrhythmia Incomplete right bundle branch block Left anterior fascicular block Abnormal ECG Compared to ECG 05/12/2018 02:18:25 Incomplete right bundle-branch block now present Left anterior fascicular block now present Sinus bradycardia no longer present Left-axis deviation no longer present Electronically Signed On 06-15-18 07:38:30 REHABILITATION AIDE by Regan Cheung
[2018-06-15] MEDS ORDERED: METHYLPREDNISOLONE 125 MG INJ ONE (09:15)
[2018-06-15] MEDS ORDERED: LEVALBUTEROL 1.25 MG/3 ML NEB ONE (09:15)
[2018-06-15] MEDS ORDERED: predniSONE 20 MG TAB ONE (09:16)
[2018-06-15] MEDS ORDERED: METHYLPREDNISOLONE 125 MG INJ IV ONE (09:36)
[2018-06-15] MEDS ORDERED: LEVALBUTEROL 1.25 MG/3 ML NEB NEB ONE (09:37)
[2018-06-15] MEDS ORDERED: predniSONE 20 MG TAB PO ONE (09:40)
[2018-06-15] MEDS ORDERED: PNEUMOCOCCAL VACCINE 0.5 ML IMVAC ONE (10:00)
[2018-06-15] MEDS: SOTALOL HCL 80 MG TAB PO SCH (17:25)
[2018-06-15] MEDS: RIVAROXABAN 20 MG TABLET PO SCH (17:25)
[2018-06-15] MEDS: ALBUTEROL 2.5 MG/3 ML NEB SOL NEB SCH (20:00)
[2018-06-15] MEDS: IPRATROPIUM BROM 0.5MG/2.5ML NEB SCH (20:00)
[2018-06-15] MEDS ORDERED: HOME MED 1 EA UNK (Gabapentin [Neurontin] 600 MG) PO SCH (21:00)
[2018-06-15] MEDS: HOME MED 1 EA UNK (Budesonide/Formoterol Fumarate [Symbicort 160-4.5 Mcg Inhaler] 2 PUFF) IH SCH (21:00)
[2018-06-15] MEDS ORDERED: CLONAZEPAM PO SCH (21:00)
[2018-06-15] MEDS ORDERED: ATORVASTATIN 20 MG TAB PO SCH (21:00)
[2018-06-15] MEDS: GABAPENTIN 300 MG CAP PO SCH (21:33)
[2018-06-15] MEDS: clonazePAM 1 MG TAB PO SCH (21:34)
[2018-06-16] MEDS: IPRATROPIUM BROM 0.5MG/2.5ML NEB SCH ×3 (02:00→14:10)
[2018-06-16] MEDS: ALBUTEROL 2.5 MG/3 ML NEB SOL NEB SCH ×3 (02:00→14:10)
[2018-06-16] MEDS: SOTALOL HCL 80 MG TAB PO SCH ×2 (05:00→17:39)
[2018-06-16 06:07] LABS: Absolute Lymphocytes (CBC) 3.2 K/uL (0.7-4.9); Absolute Monocytes 0.9 K/uL (0.1-1.3); Absolute Neutrophil 5.1 K/uL (1.8-8.0); Basophils % 0.2 % (0-1.3); Hematocrit 46.5 % (36.0-45.0); Lymphocytes % 34.9 % (15.3-44.8); MCV 94.5 fL (80-100); MPV 8.8 fL (7.6-11.3); Monocytes % 9.7 % (3.3-12.3); RBC Red Blood Cell Count 4.92 M/uL (3.86-4.86)
[2018-06-16 06:56] LABS: ALT/SGPT 14 U/L (12-78); AST/SGOT 14 U/L (15-37); Albumin 2.8 g/dL (3.4-5.0); Alkaline Phosphatase 65 U/L (45-117); BUN Blood Urea Nitrogen 8 mg/dL (7-18); Bicarbonate 29 mmol/L (21-32); Bilirubin Total 0.6 mg/dL (0.2-1.0); Glucose Level 105 mg/dL (74-106); Potassium 4.3 mmol/L (3.5-5.1); Protein, Total 5.7 g/dL (6.4-8.2); Sodium Level 138 mmol/L (136-145)
[2018-06-16] MEDS ORDERED: PANTOPRAZOLE 40MG TABLET PO SCH (07:30)
[2018-06-16] MEDS: GABAPENTIN 300 MG CAP PO SCH (07:52)
[2018-06-16] MEDS: clonazePAM 1 MG TAB PO SCH (07:52)
[2018-06-16] MEDS: HOME MED 1 EA UNK (Budesonide/Formoterol Fumarate [Symbicort 160-4.5 Mcg Inhaler] 2 PUFF) IH SCH (07:53)
[2018-06-16] MEDS ORDERED: FUROSEMIDE 40 MG TABLET PO SCH (09:00)
[2018-06-16] MEDS: RIVAROXABAN 20 MG TABLET PO SCH (17:40)
--- NOTE | 2018-06-16 18:00 | P.DS ---
Admission Date: 06/15/18 Discharge Date: 06/16/18 Discharge Condition: GOOD Reason for Admission: Suicidal ideation Consultations: Royec Cervantes - Problems (1) COPD (chronic obstructive pulmonary disease) Onset Date: 08/25/17 Current Visit: No Status: Chronic Qualifiers: COPD type: COPD with acute exacerbation Qualified Code(s): J44.1 - Chronic obstructive pulmonary disease with (acute) exacerbation (2) Alcohol abuse, continuous drinking behavior Onset Date: 06/16/18 Current Visit: Yes Status: Acute (3) Grieving family Onset Date: 06/16/18 Current Visit: Yes Status: Acute (4) Suicidal ideation Onset Date: 06/16/18 Current Visit: Yes Status: Ruled-out (5) CHF (congestive heart failure) Onset Date: 08/25/17 Current Visit: No Status: Chronic Qualifiers: Heart failure type: unspecified Heart failure chronicity: chronic Qualified Code(s): I50.9 - Heart failure, unspecified (6) Hyperlipidemia Current Visit: No Status: Chronic Qualifiers: Hyperlipidemia type: mixed hyperlipidemia Qualified Code(s): E78.2 - Mixed hyperlipidemia (7) Atrial fibrillation with RVR Onset Date: 08/25/17 Current Visit: No Status: Chronic (8) Hypertension Onset Date: 08/25/17 Current Visit: No Status: Chronic Qualifiers: Hypertension type: essential hypertension Qualified Code(s): I10 - Essential (primary) hypertension Brief History of Present Illness: Patient is a 78-year-old female who presents to the hospital with alcohol intoxication and she is suicidal. Her is on hospice care for some type of head and neck cancer. There is also question of lung cancer. She states he is at home dining. She has been with him since she was 18 which is for almost 60 years. They have 1 child together in the have 3 children through another marriage. She does not have a lot of support at this time and she just is really saddened by his condition. She does not like to see him suffering in this manner. She felt very depressed so she decided to start drinking. After her drinking she became saddened to the point that she wanted to take her life. She has thought of some different things but has not come to the point were she has made a definitive plan. She was brought into the hospital for evaluation Hospital Course: Overall during the hospital stay patient remained stable Patient was initially admitted to the hospital for alcohol intoxication and dyspnea most likely secondary to COPD exacerbation. Patient was kept on IV fluids here in the hospital along with tonny castillo. Patient had marked improvement in her symptoms and thus was discharged home under stable condition. When patient came to the ER patient did have suicidal ideation noted by the ER physician. The patient was evaluated by Royce Cervantes here in the hospital for inpatient psych and patient stated that she was very emotional when she came to the ER due to her dying and was never suicidal. Patient stated that she does not have any plans to her herself or others and a currently is just depressed because of this situation that she has at hand with her . Patient however does not plan to kill herself or her herself in any way at all. Royce then made the recommendations for outpatient followup in cleared patient for regular floor. Patient then was observed for next 24-48 hr and did well overall and thus was discharged home under stable condition. Vital Signs/Physical Exam: Temp Pulse Resp BP Pulse Ox 97.0 F 48 L 18 149/62 H 93 06/16/18 16:00 06/16/18 16:00 06/16/18 16:00 06/16/18 16:00 06/16/18 16:00 General: Alert, In no apparent distress HEENT: Atraumatic, PERRLA, EOMI Neck: Supple, JVD not distended Respiratory: Clear to auscultation bilaterally, Normal air movement Cardiovascular: Regular rate/rhythm, Normal S1 S2 Gastrointestinal: Normal bowel sounds, No tenderness Musculoskeletal: No tenderness Integumentary: No rashes Neurological: Normal speech, Normal tone, Normal affect Lymphatics: No axilla or inguinal lymphadenopathy Laboratory Data at Discharge: WBC 9.2 K/uL (4.3-10.9) D 06/16/18 05:40 Hgb 15.7 g/dL (12.0-15.0) H 06/16/18 05:40 Hct 46.5 % (36.0-45.0) H 06/16/18 05:40 Plt Count 207 K/uL (152-406) 06/16/18 05:40 PT 10.8 SECONDS (9.5-12.5) 06/14/18 22:32 INR 0.92 06/14/18 22:32 APTT 27.4 SECONDS (24.3-36.9) 06/14/18 22:32 Sodium 138 mmol/L (136-145) 06/16/18 05:40 Potassium 4.3 mmol/L (3.5-5.1) 06/16/18 05:40 BUN 8 mg/dL (7-18) 06/16/18 05:40 Creatinine 0.50 mg/dL (0.55-1.3) L 06/16/18 05:40 Glucose 105 mg/dL (74-106) 06/16/18 05:40 Total Bilirubin 0.6 mg/dL (0.2-1.0) 06/16/18 05:40 AST 14 U/L (15-37) L 06/16/18 05:40 ALT 14 U/L (12-78) 06/16/18 05:40 Alkaline Phosphatase 65 U/L (45-117) 06/16/18 05:40 Home Medications: Gabapentin [Neurontin] 600 mg PO BID 08/23/17 Albuterol Sulfate [Proair Hfa] 2 puff IH TID PRN #1 hfa.aer.ad 08/25/17 Atorvastatin Calcium [Lipitor*] 20 mg PO BEDTIME #30 tab 08/25/17 Budesonide/Formoterol Fumarate [Symbicort 160-4.5 Mcg Inhaler] 2 puff IH BID #1 hfa.aer.ad 08/25/17 Furosemide [Lasix*] 40 mg PO DAILY #30 tab 08/25/17 Pantoprazole [Protonix Tab*] 40 mg PO DAILYAC #30 tab 08/25/17 Rivaroxaban [Xarelto*] 20 mg PO DAILY #30 tab 08/25/17 Sotalol HCl [Betapace*] 80 mg PO BID 6AM 6PM #60 tab 08/25/17 clonazePAM [Clonazepam] 0.5 tab PO BID 06/15/18 Diet: Regular Activity: Ad cody Followup: Mani Thao DO, DO [ACTIVE - CAN ADMIT] - 1 Week (Call for appointment)
== END 2018-06-16 18:00 | disposition home or self-care (01) ==
LOC: ER 21:54 → ERHOLD 06-15 01:50 → 2ND 06-15 14:20 → INTOOBSV 06-15 14:56 → OBSVTOIN 06-15 14:56
PROVIDERS: ADMIT Hospitalist; ATTEND Hospitalist
DX: F10.129 Alcohol abuse with intoxication, unspecified (principal); R45.851 Suicidal ideations; J44.1 Chronic obstructive pulmonary disease with (acute) exacerbation; I11.0 Hypertensive heart disease with heart failure; I50.32 Chronic diastolic (congestive) heart failure; I48.2 Chronic atrial fibrillation; E78.5 Hyperlipidemia, unspecified; I65.29 Occlusion and stenosis of unspecified carotid artery; F17.210 Nicotine dependence, cigarettes, uncomplicated; Z88.0 Allergy status to penicillin; Z88.7 Allergy status to serum and vaccine
CPT/HCPCS: 36415 ×2; 80048; 80053; 80076; 80307 ×8; 80320; 80329 ×2; 81003; 82962 ×6; 85025 ×2; 85610; 85730; 93005; 94640; 99285; G0378 ×2; J2930; J7030 ×2; J7512

== ENCOUNTER 2021-06-11 15:50 | Inpatient (IN) | payer OTHER ==
--- NOTE | 2021-06-11 18:10 | RAD REPORT ---
EXAM DESCRIPTION: RAD - Chest Single View - 06/11/2021 5:56 pm CLINICAL HISTORY: COUGH Chest pain. COMPARISON: Chest Pa And Lat (2 Views) dated 09/20/2019; Chest Pa And Lat (2 Views) dated 10/26/2018; C hest Single View dated 05/12/2018; Chest Single View dated 08/28/2017; Thorax Wo Con dated 11/26/2018 FINDINGS: Portable technique limits examination quality. Significant opacification of the left mid and lower lung is present likely representing pneumonia. Ri ght lung is emphysematous. The heart is moderately enlarged in size. No displaced fractures. IMPRESSION: Left mid and lower lung pneumonia pattern is seen.
[2021-06-11 18:51] LABS: Absolute Lymphocytes (CBC) 3.7 K/uL (0.7-4.9); Basophils % 0.3 % (0-1.3); Lymphocytes % 22.5 % (15.3-44.8); MPV 6.3 fL (7.6-11.3); RBC Red Blood Cell Count 5.08 M/uL (3.86-4.86)
[2021-06-11 18:52] LABS: Protime INR 1.19
--- NOTE | 2021-06-11 18:57 | EDPHYS ---
Physician Documentation [facility] Name: Siria Lauren Age: 81 yrs Sex: Female : 1940 Arrival Date: 06/11/2021 Time: 16:02 Bed 23 Private MD: ED Physician Arpan Pitts HPI: 06/11 18:29 This 81 yrs old Female presents to ER via EMS with complaints of Altered jovani Mental Status. Historical: - Allergies: 16:06 codeine sulfate; iw 16:06 PENICILLINS; iw 16:06 Symbicort; iw 16:06 Tetanus Vaccines \\T\\ Toxoid; iw - Home Meds: 16:06 Abilify 5 mg Oral tab 1 tab once daily [Active]; amlodipine 5 mg tab 1 tab once daily iw [Active]; atorvastatin 20 mg Oral tab 1 tab once daily [Active]; budesonide-formoterol inhalation 2 puffs 2 times per day [Active]; citalopram 40 mg tab 1 tab once daily [Active]; clonazepam 2 mg Oral tab 0.5 mg 2 times per day [Active]; furosemide 40 mg Oral tab 1 tab once daily [Active]; gabapentin 600 mg Oral tab 1 tab twice a day [Active]; [place] 5-325 mg Oral tab 1 tab every 6 hours [Active]; pantoprazole 40 mg Oral TbEC 1 tab once daily [Active]; ProAir HFA 90 mcg/actuation inhalation HFAA 2 puffs [Active]; Singulair 10 mg Oral tab 1 tab once daily [Active]; Sorine Oral [Active]; Xarelto 10 mg Oral tab 2 tab once daily [Active]; - PMHx: 16:06 Atrial Fib; CHF; COPD; Hypertension; iw - Immunization history:: Client reports receiving the 2nd dose of the Covid vaccine. - Social history:: Smoking status: Patient denies any tobacco usage or history of. ROS: 18:36 Constitutional: Negative for fever, chills, and weight loss, Eyes: Negative for injury, jovani pain, redness, and discharge, ENT: Negative for injury, pain, and discharge, Neck: Negative for injury, pain, and swelling, Abdomen/GI: Negative for abdominal pain, nausea, vomiting, diarrhea, and constipation, Back: Negative for injury and pain, : Negative for injury, bleeding, discharge, and swelling, Skin: Negative for injury, rash, and discoloration, Neuro: Negative for headache, weakness, numbness, tingling, and seizure. 18:36 Cardiovascular: Positive for palpitations. 18:36 Respiratory: Positive for cough, shortness of breath, at rest. wheezing, expiratory. 18:36 MS/extremity: Positive for swelling, tenderness, of the right leg and left leg. Exam: 18:36 Constitutional: This is a well developed, well nourished patient who is awake, alert, jovani and in no acute distress. Head/Face: Normocephalic, atraumatic. Eyes: Pupils equal round and reactive to light, extra-ocular motions intact. Lids and lashes normal. Conjunctiva and sclera are non-icteric and not injected. Cornea within normal limits. Periorbital areas with no swelling, redness, or edema. ENT: Nares patent. No nasal discharge, no septal abnormalities noted. Tympanic membranes are normal and external auditory canals are clear. Oropharynx with no redness, swelling, or masses, exudates, or evidence of obstruction, uvula midline. Mucous membranes moist. Neck: Trachea midline, no thyromegaly or masses palpated, and no cervical lymphadenopathy. Supple, full range of motion without nuchal rigidity, or vertebral point tenderness. No Meningismus. Chest/axilla: Normal chest wall appearance and motion. Nontender with no deformity. No lesions are appreciated. Respiratory: Lungs have equal breath sounds bilaterally, clear to auscultation and percussion. No rales, rhonchi or wheezes noted. No increased work of breathing, no retractions or nasal flaring. Abdomen/GI: Soft, non-tender, with normal bowel sounds. No distension or tympany. No guarding or rebound. No evidence of tenderness throughout. Back: No spinal tenderness. No costovertebral tenderness. Full range of motion. Female : Normal external genitalia. Skin: Warm, dry with normal turgor. Normal color with no rashes, no lesions, and no evidence of cellulitis. Neuro: Awake and alert, GCS 15, oriented to person, place, time, and situation. Cranial nerves II-XII grossly intact. Motor strength 5/5 in all extremities. Sensory grossly intact. Cerebellar exam normal. Normal gait. Psych: Awake, alert, with orientation to person, place and time. Behavior, mood, and affect are within normal limits. 18:36 Cardiovascular: Rate: tachycardic, Rhythm: irregularly irregular, Pulses: Pulses are 4+ in bilateral radial, brachial, femoral, popliteal, posterior tibial and and dorsalis pedis arteries.. Heart sounds: normal, Edema: 3+ edema to level of left midcalf and right midcalf, JVD: is not appreciated. 18:36 ECG was reviewed by the Attending Physician. Vital Signs: 16:08 Temp 97.3(TE); ss 16:08 Pulse 80; Resp 16; Pulse Ox 94% on R/A; Height 5 ft. 2 in. (157.48 cm); Pain 0/10; ss 16:15 BP 129 / 72; ss 20:20 BP 138 / 93; Pulse 115; Resp 28; Pulse Ox 94% on R/A; df1 MDM: 17:38 Patient medically screened. [facility] 18:38 Differential Diagnosis: electrolyte abnormality, pneumonia. Data reviewed: vital signs, [facility] nurses notes, lab test result(s), EKG, radiologic studies, CT scan, plain films. Data interpreted: monitor car operator: rate is 109 beats/min, Pulse oximetry: on room air is 94 %. Test interpretation: by ED physician or midlevel provider: ECG, plain radiologic studies. Counseling: I had a detailed discussion with the patient and/or guardian regarding: the historical points, exam findings, and any diagnostic results supporting the discharge/admit diagnosis, lab results, radiology results, the need for further work-up and treatment in the hospital. 06/11 17:40 Order name: Basic Metabolic Panel [facility] 06/11 17:40 Order name: CBC with Diff [facility] 06/11 17:40 Order name: LFT's [facility] 06/11 17:40 Order name: Magnesium; Complete Time: 19:36 [facility] 06/11 17:40 Order name: NT PRO-BNP; Complete Time: 19:36 [facility] 06/11 17:40 Order name: PT-INR; Complete Time: 19:06 [facility] 06/11 17:40 Order name: Troponin (emerg Dept Use Only); Complete Time: 19:36 [facility] 06/11 17:40 Order name: Urine Culture [facility] 06/11 17:40 Order name: Lactate; Complete Time: 19:06 [facility] 06/11 17:40 Order name: SARS-COV-2 RT PCR (Document "Date of Onset" if Symptomatic); Complete Time: [facility] 02:12 06/11 17:41 Order name: Basic Metabolic Panel; Complete Time: 19:36 [facility] 06/11 17:41 Order name: CBC with Automated Diff; Complete Time: 02:12 [facility] 06/11 17:41 Order name: Liver (Hepatic) Function; Complete Time: 19:36 [facility] 06/11 17:50 Order name: Urine Microscopic Only [facility] 06/11 17:40 Order name: XRAY Chest (1 view); Complete Time: 18:36 [facility] 06/11 17:40 Order name: CT Head Brain wo Cont; Complete Time: 19:06 [facility] 06/11 18:34 Order name: Blood Culture Adult (2) [facility] 06/11 19:07 Order name: CT Chest Wo Con [facility] 06/11 19:36 Order name: ABG; Complete Time: 02:12 [facility] 06/11 21:13 Order name: CBC Smear Scan; Complete Time: 02:12 [facility] 06/12 04:22 Order name: CBC with Automated Diff [facility] 06/12 04:39 Order name: Comprehensive Metabolic Panel [facility] 06/12 04:39 Order name: Lipid Profile [facility] 06/12 04:39 Order name: T4 Free [facility] 06/12 04:39 Order name: Magnesium [facility] 06/12 04:39 Order name: Thyroid Stimulating Hormone [facility] 06/12 13:50 Order name: Potassium [facility] 06/12 14:02 Order name: Transferrin Sat/Iron Binding [facility] 06/12 14:02 Order name: Ferritin [facility] 06/12 17:34 Order name: Sputum Culture [facility] 06/11 17:40 Order name: EKG; Complete Time: 17:41 [facility] 06/11 17:40 Order name: Cardiac monitoring; Complete Time: 18:19 [facility] 06/11 17:40 Order name: EKG - Nurse/Tech; Complete Time: 18:19 [facility] 06/11 17:40 Order name: IV Saline Lock; Complete Time: 19:00 [facility] 06/11 17:40 Order name: Labs collected and sent; Complete Time: 19:00 [facility] 06/11 17:40 Order name: O2 Per Protocol; Complete Time: 17:59 [facility] 06/11 17:40 Order name: O2 Sat Monitoring; Complete Time: 17:59 [facility] 06/11 20:46 Order name: CT; Complete Time: 02:12 EDMS EC:36 Rate is 109 beats/min. Rhythm is irregularly irregular. QRS [place] is Normal. CT interval jovani is normal. QRS interval is normal. QT interval is normal. No Q waves. T waves are Normal. No ST changes noted. Clinical impression: Atrial Fibrillation. Interpreted by me. Reviewed by me. Administered Medications: 18:24 Not Given (Duplicate Order): NS 0.9% 1000 ml IV at 125 ml/hr continuous jovani 18:56 CANCELLED (Duplicate Order): Zithromax (azithromycin) 500 mg IVPB once over 1 hrs; mix jovani in 250 mL NS 18:57 CANCELLED (Duplicate Order): Rocephin (cefTRIAXone) 2 grams IV at per protocol once; jovani Given slow IV push per pharmarcy instructions 20:06 Drug: Xopenex (levalbuterol) 1.25 mg Route: Inhalation; df1 20:06 Drug: Xopenex (levalbuterol) 1.25 mg Route: Inhalation; df1 20:19 Drug: Lasix (furosemide) 20 mg Route: IVP; Site: left forearm; df1 20:19 Drug: Cefepime 2 grams Route: IVPB; Rate: 200 ml/hr; Infused Over: 30 mins; Site: left df1 forearm; 20:19 Drug: Pepcid (famotidine) 20 mg Route: IVP; Site: left femoral; df1 20:20 Drug: Sotalol 80 mg Route: PO; df1 20:20 Drug: SOLU-Medrol (methylPrednisoLONE) 125 mg Route: IVP; Site: left forearm; df1 Disposition Summary: 06/11/21 18:56 Hospitalization Ordered Hospitalization Status: Inpatient Admission jovani Provider: Gurwinder Melgoaz cha Condition: Fair jovani Problem: new jovani Symptoms: have improved jovani Bed/Room Type: Standard jovani Location: [facility] ER HOLD(06/11/21 20:03) cg Room Assignment: ERHOLD-(06/11/21 20:03) cg Diagnosis - Dementia in other diseases classified elsewhere without behavioral disturbance jovani - Unspecified bacterial pneumonia - left mid/lower jovani - Lymphedema, not elsewhere classified jovani - Chronic atrial fibrillation jovani - Diastolic (congestive) heart failure jovani - Hypoxemia jovani - Other depressive episodes jovani - Elevated white blood cell count jovani - Anemia, unspecified jovani Forms: - Medication Reconciliation Form jovani - SBAR form jovani Signatures: Dispatcher [employer] EDArpan Moody MD MD cha Williams, Irene, RN RN iw Smirch, Shelby, RN RN ss Attema, Lee, PSYCH SPECIALIST-C PSYCH SPECIALIST-Cla1 Carolynn Reaves RN RN cg Davies, Jonathon, RN RN jd3 Furlich, Dawn df1 Corrections: (The following items were deleted from the chart) 18:56 18:35 Zithromax (azithromycin) 500 mg IVPB once over 1 hrs; mix in 250 mL NS ordered. jovani jovani 18:56 18:42 Zithromax (azithromycin) 500 mg IVPB once over 1 hrs; mix in 250 mL NS ordered. [facility] jd3 18:57 18:35 Rocephin (cefTRIAXone) 2 grams IV at per protocol once; Given slow IV push per [facility] pharmarcy instructions ordered. [facility] 19:47 18:52 [place] ordered. [facility] df1 20:03 18:56 Telemetry/MedSurg (Inpatient) [facility] cg 20:03 18:[address] [facility]
--- NOTE | 2021-06-11 18:57 | ER ---
Nurse's Notes [facility] Name: Siria Lauren Age: 81 yrs Sex: Female : 1940 Arrival Date: 06/11/2021 Time: 16:02 Bed 23 Private MD: Diagnosis: Dementia in other diseases classified elsewhere without behavioral disturbance;Unspecified bacterial pneumonia-left mid/lower ;Lymphedema, not elsewhere classified;Chronic atrial fibrillation;Diastolic (congestive) heart failure;Hypoxemia;Other depressive episodes;Elevated white blood cell count;Anemia, unspecified Presentation: 06/11 16:05 Chief complaint: EMS states: AMS for a few days from [facility] , hx of dementia , iw increased her zoloft recently , is A\T\OX1 which is her baseline. Coronavirus screen: At this time, the client does not indicate any symptoms associated with coronavirus-19. Ebola Screen: Patient negative for fever greater than or equal to 101.5 degrees Fahrenheit, and additional compatible Ebola Virus Disease symptoms Patient denies exposure to infectious person. Patient denies travel to an Ebola-affected area in the 21 days before illness onset. No symptoms or risks identified at this time. Initial Sepsis Screen: Does the patient meet any 2 criteria? No. Patient's initial sepsis screen is negative. Does the patient have a suspected source of infection? No. Patient's initial sepsis screen is negative. Risk Assessment: Do you want to hurt yourself or someone else? Patient reports no desire to harm self or others. Onset of symptoms was June 08, 2021. 16:05 Method Of Arrival: EMS: [facility] iw 16:05 Acuity: APOLINAR 3 iw 16:17 Note staff from [facility] called to report that pt has had stopped going to the dining iw room last week, she saw her doctor and they increased her Zoloft on Fri because they thought she was depressed, now she just sits in one spot and does not participate in self care, she has been urinating and defecating on herself which is not normal for her, she acts like she can hear you but then she just doesn't move. Historical: - Allergies: 16:06 codeine sulfate; iw 16:06 PENICILLINS; iw 16:06 Symbicort; iw 16:06 Tetanus Vaccines \T\ Toxoid; iw - Home Meds: 16:06 Abilify 5 mg Oral tab 1 tab once daily [Active]; amlodipine 5 mg tab 1 tab once daily iw [Active]; atorvastatin 20 mg Oral tab 1 tab once daily [Active]; budesonide-formoterol inhalation 2 puffs 2 times per day [Active]; citalopram 40 mg tab 1 tab once daily [Active]; clonazepam 2 mg Oral tab 0.5 mg 2 times per day [Active]; furosemide 40 mg Oral tab 1 tab once daily [Active]; gabapentin 600 mg Oral tab 1 tab twice a day [Active]; [place] 5-325 mg Oral tab 1 tab every 6 hours [Active]; pantoprazole 40 mg Oral TbEC 1 tab once daily [Active]; ProAir HFA 90 mcg/actuation inhalation HFAA 2 puffs [Active]; Singulair 10 mg Oral tab 1 tab once daily [Active]; Sorine Oral [Active]; Xarelto 10 mg Oral tab 2 tab once daily [Active]; - PMHx: 16:06 Atrial Fib; CHF; COPD; Hypertension; iw - Immunization history:: Client reports receiving the 2nd dose of the Covid vaccine. - Social history:: Smoking status: Patient denies any tobacco usage or history of. Screenin:45 Abuse screen: Denies threats or abuse. Nutritional screening: No deficits noted. jd3 Tuberculosis screening: No symptoms or risk factors identified. Fall Risk Ambulatory Aid- None/Bed Rest/Nurse Assist (0 pts). Gait- Normal/Bed Rest/Wheelchair (0 pts) Mental Status- Oriented to own ability (0 pts). Total Davis Fall Scale indicates No Risk (0-24 pts). Assessment: 18:45 General: Appears in no apparent distress. comfortable, Behavior is calm, cooperative, jd3 appropriate for age. 18:45 Pain: Denies pain. Neuro: Level of Consciousness is awake, alert, obeys commands, jd3 confused, Oriented to person, place. Cardiovascular: Denies chest pain, Capillary refill < 3 seconds Patient's skin is warm and dry. Rhythm is irregular. Respiratory: Airway is patent Respiratory effort is even, unlabored, Respiratory pattern is regular, symmetrical, Denies cough, shortness of breath. GI: No signs and/or symptoms were reported involving the gastrointestinal system. : No signs and/or symptoms were reported regarding the genitourinary system. EENT: No signs and/or symptoms were reported regarding the EENT system. Derm: Skin is intact, Skin is dry, Skin is normal, Skin temperature is warm. Musculoskeletal: No signs and/or symptoms reported regarding the musculoskeletal system. Vital Signs: 16:08 Temp 97.3(TE); ss 16:08 Pulse 80; Resp 16; Pulse Ox 94% on R/A; Height 5 ft. 2 in. (157.48 cm); Pain 0/10; ss 16:15 BP 129 / 72; ss 20:20 BP 138 / 93; Pulse 115; Resp 28; Pulse Ox 94% on R/A; df1 ED Course: 16:02 Patient arrived in ED. iw 16:06 Triage completed. iw 17:38 Arpan Pitts MD is Attending Physician. jovani 17:56 XRAY Chest (1 view) In Process Unspecified. EDMS 17:59 Cruz Silva, RN is Primary Nurse. jd3 18:45 Bed in low position. Call light in reach. Side rails up X 1. Adult w/ patient. Cardiac jd3 monitor on. Pulse ox on. NIBP on. 18:51 CT Head Brain wo Cont In Process Unspecified. EDMS 18:52 Gurwinder Melgoza is Hospitalizing Provider. jovani 19:14 Arm band placed on. jd3 19:47 Blood Culture Adult (2) Sent. df1 20:06 Inserted saline lock: 22 gauge in left forearm, using aseptic technique. df1 20:06 No provider procedures requiring assistance completed. df1 Administered Medications: 18:24 Not Given (Duplicate Order): NS 0.9% 1000 ml IV at 125 ml/hr continuous jovani 18:56 CANCELLED (Duplicate Order): Zithromax (azithromycin) 500 mg IVPB once over 1 hrs; mix jovani in 250 mL NS 18:57 CANCELLED (Duplicate Order): Rocephin (cefTRIAXone) 2 grams IV at per protocol once; jovani Given slow IV push per pharmarcy instructions 20:06 Drug: Xopenex (levalbuterol) 1.25 mg Route: Inhalation; df1 20:06 Drug: Xopenex (levalbuterol) 1.25 mg Route: Inhalation; df1 20:19 Drug: Lasix (furosemide) 20 mg Route: IVP; Site: left forearm; df1 20:19 Drug: Cefepime 2 grams Route: IVPB; Rate: 200 ml/hr; Infused Over: 30 mins; Site: left df1 forearm; 20:19 Drug: Pepcid (famotidine) 20 mg Route: IVP; Site: left femoral; df1 20:20 Drug: Sotalol 80 mg Route: PO; df1 20:20 Drug: SOLU-Medrol (methylPrednisoLONE) 125 mg Route: IVP; Site: left forearm; df1 Outcome: 18:56 Decision to Hospitalize by Provider. jovani 06/12 19:25 Patient left the ED. lp1 Signatures: Dispatcher [employer] EDMS Arpan Pitts MD MD cha Williams, Irene, RN RN iw Smirch, Shelby, RN RN ss Pena, Laura, RN RN lp1 Cruz Silva RN RN jd3 Furlich, Dawn df1
--- NOTE | 2021-06-11 19:04 | RAD REPORT ---
EXAM DESCRIPTION: CT - Head Brain Wo Cont - 06/11/2021 6:51 pm CLINICAL HISTORY: MENTAL STATUS CHANGE Headache, drowsiness COMPARISON: No comparisons TECHNIQUE: All CT scans are performed using dose optimization technique as appropriate and may inclu de automated exposure control or mA/KV adjustment according to patient size. FINDINGS: No intracranial hemorrhage, hydrocephalus or extra-axial fluid collection.Moderate general ized brain atrophy is present with mild periventricular and deep white matter chronic microvascular i schemic changes.No areas of brain edema or evidence of midline shift. The paranasal sinuses and mastoids are clear. The calvarium is intact. IMPRESSION: No acute intracranial abnormality.
[2021-06-11 19:10] LABS: ALT/SGPT 14 U/L (12-78); AST/SGOT 24 U/L (15-37); Albumin 2.1 g/dL (3.4-5.0); Alkaline Phosphatase 149 U/L (45-117); BUN Blood Urea Nitrogen 13 mg/dL (7-18); Bicarbonate 36 mmol/L (21-32); Bilirubin Direct 0.1 mg/dL (0-0.2); Bilirubin Total 0.3 mg/dL (0.2-1.0); Glucose Level 95 mg/dL (74-106); Magnesium 2.6 mg/dL (1.8-2.4); NT PRO-BNP 4200 pg/mL (<450); Potassium 3.2 mmol/L (3.5-5.1); Protein, Total 8.1 g/dL (6.4-8.2); Sodium Level 138 mmol/L (136-145); Troponin (Emerg Dept Use Only) < 0.02 ng/mL (0.0-0.045)
[2021-06-11] MEDS ORDERED: METHYLPREDNISOLONE 125 MG INJ ONE (19:15)
[2021-06-11] MEDS ORDERED: CEFEPIME 1 GM/VIAL ONE (19:15)
[2021-06-11] MEDS ORDERED: FUROSEMIDE 20 MG/ 2ML VIAL ONE (19:15)
[2021-06-11] MEDS ORDERED: SOTALOL HCL 80 MG TAB ONE (19:15)
[2021-06-11] MEDS ORDERED: VANCOMYCIN 1 GM/VIAL ONE (19:16)
[2021-06-11] MEDS ORDERED: LEVALBUTEROL 1.25 MG/3 ML NEB ONE (19:16)
[2021-06-11] MEDS ORDERED: NA CHLORIDE 0.9% 100 ML ONE (19:16)
[2021-06-11] MEDS ORDERED: FAMOTIDINE 20 MG/2 ML VIAL IV ONE (19:17)
[2021-06-11] MEDS ORDERED: NA CHLORIDE 0.9% 250 ML ONE (19:17)
--- NOTE | 2021-06-11 19:51 | P.HP ---
Certification for Inpatient Patient admitted to: Inpatient With expected LOS: >2 Midnights Patient will require the following post-hospital care: None Practitioner: I am a practitioner with admitting privileges, knowledge of patient current condition, hospital course, and medical plan of care. Services: Services provided to patient in accordance with Admission requirements found in Title 42 Section 412.3 of the Code of Federal Regulations Patient History Date of Service: 06/11/21 Primary Care Provider: long-term doctor Reason for admission: LLL pneumonia History of Present Illness: 81-year-old female with history of dementia, atrial fibrillation, chronic systolic congestive heart failure, hypertension, COPD, lymphedema presents to emergency department for altered mental status. Patient currently resides at [facility] assisted [facility], family reports that over the course of the last 1.5 weeks patient has begun to participate less in her care, patient typically walks with a walker and goes to the dining room every day to eat and socialize, for the past week or so patient has not been doing this, not communicating as well as previous and staying in bed constantly. Patient was transported to the emergency department for evaluation. Evaluation in the emergency departmentlabs significant for white blood cell count 16.5 hemoglobin 10.4 medical 34.0 MCV 66.9 platelet count 502 sodium 138 potassium 3.2 chloride 94 CO2 36 GFR 71 BNP 4200 urine analysis pending, ABG pending chest x-ray demonstrated left mid and lower lung pneumonia pattern. Patient had previous CT scan of the chest November 2019 which demonstrated 18 mm left lower lobe nodule most likely neoplasm follow-up PET scan 12/24/2018 demonstrated 20 x 14 mm spiculated markedly FDG avid left lower lung lesion compatible with neoplasia. Patient was seen and evaluated by pulmonology who recommended chemo/radiation, family declined further treatment at that time. Patient does have DNR in place. CT scan of the chest today results pending currently. Patient does take sotalol at home, for this reason she is started on cefepime and vancomycin rather than Levaquin or Zithromax. Patient also with severe penicillin allergy. After evaluation emergency department provider wishes to admit for further evaluation and management of left lower/mid pneumonia, altered mental status likely metabolic encephalopathy. Allergies codeine Allergy (Verified 09/12/17 10:35) unknown epinephrine [From Adrenalin] Allergy (Verified 09/12/17 10:35) unknown Penicillins Allergy (Verified 09/12/17 10:10) Unknown roflumilast [From Dalires] Allergy (Verified 09/12/17 10:35) unknown Tetanus Vaccines and Toxoid Allergy (Verified 09/12/17 10:35) unknown Home Medications: Gabapentin [Neurontin] 600 mg PO BID 08/23/17 Albuterol Sulfate [Proair Hfa] 2 puff IH TID PRN #1 hfa.aer.ad 08/25/17 Atorvastatin Calcium [Lipitor*] 20 mg PO BEDTIME #30 tab 08/25/17 Budesonide/Formoterol Fumarate [Symbicort 160-4.5 Mcg Inhaler] 2 puff IH BID #1 hfa.aer.ad 08/25/17 Furosemide [Lasix*] 40 mg PO DAILY #30 tab 08/25/17 Pantoprazole [Protonix Tab*] 40 mg PO DAILYAC #30 tab 08/25/17 Rivaroxaban [Xarelto*] 20 mg PO DAILY #30 tab 08/25/17 Sotalol HCl [Betapace*] 80 mg PO BID 6AM 6PM #60 tab 08/25/17 clonazePAM [Clonazepam] 0.5 tab PO BID 06/15/18 - Past Medical/Surgical History Diabetic: No -: Hypertension -: COPD -: Chronic systolic congestive heart failure -: Lymphedema -: Atrial fibrillation -: Depression -: C section Psychosocial/ Personal History: [facility] - Family History Mother -: Heart disease, Hypertension, Lung disease, Cancer - Social History Smoking Status: Former smoker Alcohol use: Yes CD- Drugs: No Caffeine use: No Place of Residence: Home Review of Systems is unable to be obtained (AMSbaseline dementia) Physical Examination - Physical Exam General: Alert, In no apparent distress, Oriented x1 HEENT: Atraumatic, PERRLA, Mucous membr. moist/pink Neck: Supple, 2+ carotid pulse no bruit, No LAD Respiratory: Diminished, Crackles/rales Cardiovascular: Edema (3+ pitting edema bilateral lower extremity), Irregular heart rate/rhythm (Atrial fibrillation rapid ventricular responserate 115) Capillary refill: <2 Seconds Gastrointestinal: Normal bowel sounds, No tenderness Musculoskeletal: No tenderness Integumentary: No rashes Neurological: Normal speech, Normal tone, Normal affect - Studies Laboratory Data (last 24 hrs) 06/11/21 18:35: PT 13.7 H, INR 1.19 06/11/21 18:35: WBC 16.50 H, Hgb 10.4 L, Hct 34.0 L, Plt Count 502 H 06/11/21 18:35: Sodium 138, Potassium 3.2 L, BUN 13, Creatinine 0.78, Glucose 95, Magnesium 2.6 H D, Total Bilirubin 0.3, AST 24, ALT 14, Alkaline Phosphatase 149 H Assessment and Plan - Plan Assessment: Metabolic encephalopathy with underlying history of dementia Left lower/left mid pneumonia with history of spiculated mass Chronic atrial fibrillationnow with rapid ventricular response not on chronic anticoagulation therapy Acute on chronic systolic congestive heart failure Acute on chronic COPD with exacerbation Dementia Hypertension Depression Plan: Metabolic encephalopathy with underlying history of dementia/depression: Likely related to infection/pneumonia. Possibly hypercapnic respiratory failure ABG pending. Continue to treat underlying cause. Patient oriented x1 at baseline. Will have physical therapy evaluate patient as well, patient typically walks with a walker daily. Patient may require skilled facility at discharge if strength is significantly diminished or mental status does not improve. Left lower/left mid pneumonia with history of spiculated mass: Continue with vancomycin, cefepime. Patient on sotalol and also severe penicillin allergic. Pulmonology consulted for additional assistance. Patient with history of 20 mm spiculated mass in the left lung, pulmonology previously recommended chemo/radiation but family declined. Chronic atrial fibrillationnow with rapid ventricular response not on chronic anticoagulation therapy: Patient has been taken off of all of her blood thinners previous to this hospitalization. Continue with sotalol, monitor on telemetry. As needed metoprolol for breakthrough rapid ventricular response. Currently rate around 110-115. Acute on chronic systolic congestive heart failure: Continue with IV Lasix twice daily, 1500 cc/day fluid restriction. Cardiology consult in place. Monitor on telemetry. Acute on chronic COPD with exacerbation: As needed breathing treatments, ABG pending, if patient is significantly hypercapnic may require BiPAP. Pulmonology consulted. Hypertension: Obtain and continue medications. DVT PPX: Lovenox Code status: DNR Dispo: Patient currently in assisted living facility, may require skilled facility at discharge if strength/mobility does not improve. Daughter Marva Cole [phone] Discharge Plan: [facility] Plan to discharge in: Greater than 2 days - Advance Directives Does patient have a Living Will: No Does patient have a Durable POA for Healthcare: No - Code Status/Comfort Care Code Status Assessed: Yes (DNR) Critical Care: No Time Spent Managing Pts Care (In Minutes): 55
--- NOTE | 2021-06-11 20:45 | RAD REPORT ---
EXAM DESCRIPTION: CT - Thorax Wo Con CLINICAL HISTORY: Chest pain pna, mass COMPARISON: Thorax Wo Con dated 11/26/2018 FINDINGS: A masslike consolidation of the left lower lobe is present posteriorly. No air bronchogram s are seen. There is abrupt truncation of the posterior left lower lobe bronchus. 5 mm nodule is pres ent in the lateral left upper lobe. Right lung is grossly clear. No pneumothorax. Mildly prominent lymph node is seen in the mediastinum. The largest lymph node measures 9 mm. A few m ildly prominent left axillary lymph nodes also present. No lytic or blastic bone lesion is evident. There are 2 vague low-density liver lesions noted in the anterior superior right lobe liver measuring 20 mm in the medial right lobe liver inferiorly measurin g [address] scans are performed using dose optimization technique as appropriate and may include automated exposure control or mA/KV adjustment according to patient size. IMPRESSION: Masslike consolidation involving the left lower lobe posteriorly is present. The finding s are worrisome for a neoplastic process.Bronchoscopy would be recommended for further evaluation. Poorly defined low-density lesions in the liver are suspicious for metastatic deposits. MRI liver pro tocol with contrast would be advised for followup.
[2021-06-11 21:13] LABS: Blood Morphology Comment NOTED (NOT SEEN); Platelet Estimate ADEQ; White Blood Cell Scan OK (OK)
[2021-06-11 21:14] LABS: Blood Gas Oxyhemoglobin 81.2 % (94-97); Blood O2 Saturation 83.5 % (92-98.5)
[2021-06-11] MEDS: IPRATROPIUM BROM 0.5MG/2.5ML NEB SCH (21:39)
[2021-06-11] MEDS ORDERED: VANCOMYCIN/NS 1 gm 1 GM/250 ML BAG IVPB SCH (21:39)
[2021-06-11] MEDS ORDERED: ACETAMINOPHEN 650MG/RECT SUPP PR PRN (21:39)
[2021-06-11] MEDS ORDERED: ONDANSETRON 4 MG/2 ML VIAL IV PRN (21:39)
[2021-06-11] MEDS ORDERED: CEFEPIME 1 GM/100 ML BAG IV SCH (23:00)
[2021-06-11] MEDS ORDERED: HYDROCODONE/APAP 5/325 MG TAB ONE (23:03)
[2021-06-11] MEDS: HYDROCODONE/APAP 5/325 MG TAB PO PRN (23:04)
[2021-06-12 00:23] VITALS: BMI 38.7
[2021-06-12] MEDS ORDERED: METHYLPREDNISOLONE 40 MG INJ ONE ×2 (00:37→07:43)
[2021-06-12] MEDS: METHYLPREDNISOLONE 40 MG INJ IV SCH ×2 (00:40→07:46)
[2021-06-12] MEDS: IPRATROPIUM BROM 0.5MG/2.5ML NEB SCH ×3 (02:40→14:00)
[2021-06-12] MEDS: ALBUTEROL 2.5 MG/3 ML NEB SOL NEB SCH ×2 (02:40→08:26)
[2021-06-12] MEDS ORDERED: IPRATROPIUM BROM 0.5MG/2.5ML ONE ×3 (02:46→14:09)
[2021-06-12] MEDS ORDERED: ALBUTEROL 2.5 MG/3 ML NEB SOL ONE ×3 (02:46→14:09)
[2021-06-12 04:16] LABS: Absolute Lymphocytes (CBC) 2.3 K/uL (0.7-4.9); Basophils % 0.1 % (0-1.3); Hematocrit 29.4 % (36.0-45.0); Lymphocytes % 17.9 % (15.3-44.8); MPV 6.4 fL (7.6-11.3)
[2021-06-12 04:37] LABS: Albumin 1.6 g/dL (3.4-5.0); Bilirubin Total 0.2 mg/dL (0.2-1.0); Magnesium 2.2 mg/dL (1.8-2.4); Potassium 3.3 mmol/L (3.5-5.1); Protein, Total 6.8 g/dL (6.4-8.2); Thyroid Stimulating Hormone 2.17 uIU/mL (0.360-3.740)
[2021-06-12] MEDS ORDERED: POTASSIUM 25 MEQ EFFERV TAB PO ONE (05:50)
[2021-06-12] MEDS ORDERED: SOTALOL HCL 80 MG TAB PO SCH (06:00)
[2021-06-12] MEDS ORDERED: SOTALOL HCL 80 MG TAB ONE (06:13)
[2021-06-12] MEDS ORDERED: POTASSIUM 25 MEQ EFFERV TAB ONE (06:13)
--- NOTE | 2021-06-12 07:06 | EKG ---
Test Date: 2021-06-11 Test Time: 18:12:07 Cruise Coordinator: ALL MEASUREMENT RESULTS: Intervals: Rate: 109 TN: QRSD: 94 QT: 350 QTc: 471 [place]: P: TN: QRS: -34 T: 77 INTERPRETIVE STATEMENTS: Atrial fibrillation with rapid ventricular response Left axis deviation Low voltage QRS Incomplete right bundle branch block Nonspecific ST abnormality Abnormal ECG Compared to ECG 06/14/2018 22:15:08 Left-axis deviation now present Low QRS voltage now present ST (T wave) deviation now present Sinus rhythm no longer present Sinus arrhythmia no longer present Left anterior fascicular block no longer present Electronically Signed On 06-12-21 07:04:35 PC SUPPORT SPECIALIST by Kg West
--- NOTE | 2021-06-12 07:06 | EKG ---
Test Date: 2021-06-11 Test Time: 19:30:54 Automatic Line Set Up Mechanic: ALL MEASUREMENT RESULTS: Intervals: Rate: 115 PA: 204 QRSD: 86 QT: 288 QTc: 398 [place]: P: 51 PA: 204 QRS: -5 T: 18 INTERPRETIVE STATEMENTS: Sinus tachycardia Otherwise normal ECG Compared to ECG 06/11/2021 18:12:07 Atrial fibrillation no longer present Left-axis deviation no longer present Incomplete right bundle-branch block no longer present ST (T wave) deviation no longer present Electronically Signed On 06-12-21 07:04:32 POWDER PRESS OPERATOR by Kg West
[2021-06-12] MEDS ORDERED: FUROSEMIDE 20 MG/ 2ML VIAL ONE (07:42)
[2021-06-12] MEDS ORDERED: ENOXAPARIN 40 MG/0.4 ML SQ ONE (07:43)
[2021-06-12] MEDS ORDERED: CEFEPIME 1 GM/VIAL ONE (07:44)
[2021-06-12] MEDS ORDERED: HYDROCODONE/APAP 5/325 MG TAB ONE (08:17)
[2021-06-12] MEDS: HYDROCODONE/APAP 5/325 MG TAB PO PRN (08:22)
[2021-06-12] MEDS ORDERED: NA CHLORIDE 0.9% 100 ML ONE (08:57)
[2021-06-12] MEDS ORDERED: CEFEPIME 1 GM/100 ML BAG IV SCH (09:00)
[2021-06-12] MEDS ORDERED: VANCOMYCIN 1.75 GM in NA CHLORIDE 0.9% 500 ML IVPB SCH (09:00)
[2021-06-12] MEDS ORDERED: FUROSEMIDE 20 MG/ 2ML VIAL IV SCH (09:00)
[2021-06-12] MEDS ORDERED: ENOXAPARIN 40 MG/0.4 ML SQ SCH (09:00)
[2021-06-12 09:16] VITALS: O2SAT 90
--- NOTE | 2021-06-12 12:04 | P.CNS ---
Date of Consult: 06/12/21 Reason for Consult: LLL lung mass Primary Care Provider: long-term doctor Chief Complaint: LLL lung mass History of Present Illness: Pt is 81 AWAMS/ Relatives at bedside/ Recent decline in AODL large LLL lung mass, Hx of COPD and dementia and former smoker Allergies codeine Allergy (Verified 09/12/17 10:35) unknown epinephrine [From Adrenalin] Allergy (Verified 09/12/17 10:35) unknown Penicillins Allergy (Verified 09/12/17 10:10) Unknown roflumilast [From Daliresp] Allergy (Verified 09/12/17 10:35) unknown Tetanus Vaccines and Toxoid Allergy (Verified 09/12/17 10:35) unknown Home Medications: Albuterol Inhaler [Ventolin Inhaler*] 2 puff IH Q6H PRN #1 hfa.aer.ad 06/12/21 Fluticasone/Salmeterol [Advair 250-50 Diskus] 1 each IH BID #60 blst.w.dev 06/12/21 Iron Polysaccharide Complex [Polysaccharide Iron] 150 mg PO DAILY #30 capsule 06/12/21 Sennosides [Senokotxtra] 17.2 mg PO DAILY #60 tablet 06/12/21 Sotalol HCl [Betapace*] 80 mg PO BID 6AM 6PM tab 06/12/21 levoFLOXacin [Levaquin] 750 mg PO DAILY #6 tab 06/12/21 - Past Medical/Surgical History Diabetic: No -: Hypertension -: COPD -: Chronic systolic congestive heart failure -: Lymphedema -: Atrial fibrillation -: Depression -: C section Psychosocial/ [facility] - Family History Mother Medical History: Heart disease, Hypertension, Lung disease, Cancer - Social History Smoking Status: Current every day smoker Alcohol use: No CD- Drugs: No Caffeine use: Yes Place of Residence: Home Review of Systems is unable to be obtained Physical Examination Temp Pulse Resp BP Pulse Ox 98.5 F 68 24 H 126/70 92 06/12/21 08:00 06/12/21 08:00 06/12/21 08:00 06/12/21 08:00 06/12/21 08:00 General: Alert, Delirious Respiratory: Clear to auscultation bilaterally, Diminished Cardiovascular: No edema, Normal pulses Gastrointestinal: Normal bowel sounds, Soft and benign Laboratory Data (last 24 hrs) 06/11/21 18:35: PT 13.7 H, INR 1.19 06/11/21 18:35: WBC 16.50 H, Hgb 10.4 L, Hct 34.0 L, Plt Count 502 H 06/11/21 18:35: Sodium 138, Potassium 3.2 L, BUN 13, Creatinine 0.78, Glucose 95, Magnesium 2.6 H D, Total Bilirubin 0.3, AST 24, ALT 14, Alkaline Phosphatase 149 H - Problems (1) Lung mass Status: Acute Plan: Age 81 AW AMS has a large LLL lung mass worse since 2019/ Resp failure hypoxic hypercarbic/ microcytic anemai/ mets to liver ?/ pt was on Xarelto at home/ Hx of COPD former smoker/DNR likely lung cancer with mets prognosis very poor / DW relatives D/c home to hospice care/ Pt has end stage demetia/ prognosis poor
[2021-06-12 13:31] VITALS: TEMP 98.4
[2021-06-12 14:01] LABS: Ferritin 261.4 ng/mL (8-388)
[2021-06-12] MEDS ORDERED: IPRATROPIUM BROM 0.5MG/2.5ML NEB PRN (14:18)
--- NOTE | 2021-06-12 15:01 | P.DS ---
Admission Date: 06/11/21 Discharge Date: 06/12/21 Primary Care Provider: long-term doctor Disposition: HOSPICE-HOME Discharge Condition: FAIR Reason for Admission: LLL pneumonia Brief History of Present Illness: 81-year-old female with history of dementia, atrial fibrillation, chronic systolic congestive heart failure, hypertension, COPD, lymphedema presented to emergency department for altered mental status. Patient currently resides at [facility], family reports that over the course of the last 1.5 weeks patient has begun to participate less in her care, patient typically walks with a walker and goes to the dining room every day to eat and socialize, for the past week or so patient has not been doing this, not communicating as well as previous and staying in bed constantly. Patient was transported to the emergency department for evaluation. Evaluation in the emergency departmentlabs significant for white blood cell count 16.5 hemoglobin 10.4 medical 34.0 MCV 66.9 platelet count 502 sodium 138 potassium 3.2 chloride 94 CO2 36 GFR 71 BNP 4200 urine analysis pending. Chest x-ray demonstrated left mid and lower lung pneumonia pattern. Patient had previous CT scan of the chest November 2019 which demonstrated 18 mm left lower lobe nodule most likely neoplasm follow-up PET scan 12/24/2018 demonstrated 20 x 14 mm spiculated markedly FDG avid left lower lung lesion compatible with neoplasia. Patient was seen and evaluated by pulmonology who recommended chemo/radiation, family declined further treatment at that time. Patient does have DNR in place. Patient does take sotalol at home. Patient also with severe penicillin allergy. Patient admitted for further management. Hospital Course: CT chest demonstrated masslike consolidation in the left lower lobe suspected to be malignancy. Patient with a previous diagnosis of spiculated mass with PET scan suggesting malignancy in the same region of the lung. Per report patient declined cancer treatment. She was seen by pulmonary and hospice recommended. Patient is awake, not altered today. Family has arranged for hospice at the assisted living facility. Patient is discharged to [facility] with hospice. She is prescribed Levaquin to cover for pneumonia. She is also prescribed inhalers. Vital Signs/Physical Exam: Temp Pulse Resp BP Pulse Ox 98.4 F 58 17 111/69 95 06/12/21 11:00 06/12/21 11:00 06/12/21 11:00 06/12/21 11:00 06/12/21 11:00 General: In no apparent distress, Oriented x2 HEENT: Mucous membr. moist/pink Neck: JVD not distended Respiratory: Diminished (In the left lower region) Cardiovascular: No edema, Regular rate/rhythm, Normal S1 S2 Gastrointestinal: Soft and benign, Non-distended, No tenderness Musculoskeletal: No swelling, No tenderness Integumentary: No rashes, No cyanosis Neurological: Normal strength at 5/5 x4 extr Laboratory Data at Discharge: WBC 12.90 K/uL (4.3-10.9) H D 06/12/21 03:42 Hgb 8.9 g/dL (12.0-15.0) L 06/12/21 03:42 Hct 29.4 % (36.0-45.0) L 06/12/21 03:42 Plt Count 458 K/uL (152-406) H 06/12/21 03:42 PT 13.7 SECONDS (9.5-12.5) H 06/11/21 18:35 INR 1.19 06/11/21 18:35 Sodium 137 mmol/L (136-145) 06/12/21 03:42 Potassium 3.7 mmol/L (3.5-5.1) 06/12/21 13:29 BUN 16 mg/dL (7-18) 06/12/21 03:42 Creatinine 0.80 mg/dL (0.55-1.3) 06/12/21 03:42 Glucose 196 mg/dL (74-106) H 06/12/21 03:42 Magnesium 2.2 mg/dL (1.8-2.4) 06/12/21 03:42 Total Bilirubin 0.2 mg/dL (0.2-1.0) 06/12/21 03:42 AST 18 U/L (15-37) 06/12/21 03:42 ALT 12 U/L (12-78) 06/12/21 03:42 Alkaline Phosphatase 123 U/L (45-117) H 06/12/21 03:42 Triglycerides 85 mg/dL (<150) 06/12/21 03:42 Cholesterol 147 mg/dL (<200) 06/12/21 03:42 HDL Cholesterol 39 mg/dL (40-60) L 06/12/21 03:42 Cholesterol/HDL Ratio 3.77 06/12/21 03:42 Home Medications: Albuterol Inhaler [Ventolin Inhaler*] 2 puff IH Q6H PRN #1 hfa.aer.ad 06/12/21 Fluticasone/Salmeterol [Advair 250-50 Diskus] 1 each IH BID #60 blst.w.dev 06/12/21 Iron Polysaccharide Complex [Polysaccharide Iron] 150 mg PO DAILY #30 capsule 06/12/21 Sennosides [Senokotxtra] 17.2 mg PO DAILY #60 tablet 06/12/21 Sotalol HCl [Betapace*] 80 mg PO BID 6AM 6PM tab 06/12/21 levoFLOXacin [Levaquin] 750 mg PO DAILY #6 tab 06/12/21 New Medications: Fluticasone/Salmeterol [Advair 250-50 Diskus] 1 each IH BID #60 blst.w.dev levoFLOXacin [Levaquin] 750 mg PO DAILY #6 tab Iron Polysaccharide Complex [Polysaccharide Iron] 150 mg PO DAILY #30 capsule Sennosides [Senokotxtra] 17.2 mg PO DAILY #60 tablet Albuterol Inhaler [Ventolin Inhaler*] 2 puff IH Q6H PRN #1 hfa.aer.ad PRN Reason: Shortness Of Breath Diet: AHA Activity: Ad cody Followup: Sis Martínez MD [Primary Care Provider] - Time spent managing pt's care (in minutes): 38
[2021-06-12 15:43] VITALS: BP 140/82
[2021-06-12] MEDS ORDERED: PIPER TAZO 3.375 GM in NA CHLORIDE 0.9% 100 ML IV SCH (17:00)
[2021-06-12] MEDS ORDERED: METHYLPREDNISOLONE 40 MG INJ IV SCH (21:00)
== END 2021-06-12 15:36 | disposition hospice, home (50) | DRG 193 ==
LOC: ER 15:50 → ERHOLD 19:32
PROVIDERS: ADMIT Internal Medicine; ATTEND Internal Medicine
DX: J18.9 Pneumonia, unspecified organism (principal); G93.41 Metabolic encephalopathy; I50.23 Acute on chronic systolic (congestive) heart failure; J96.92 Respiratory failure, unspecified with hypercapnia; J96.91 Respiratory failure, unspecified with hypoxia; C34.32 Malignant neoplasm of lower lobe, left bronchus or lung; I48.20 Chronic atrial fibrillation, unspecified; J44.1 Chronic obstructive pulmonary disease with (acute) exacerbation; I11.0 Hypertensive heart disease with heart failure; D72.829 Elevated white blood cell count, unspecified; F32.A Depression, unspecified; D50.9 Iron deficiency anemia, unspecified; F03.90 Unspecified dementia, unspecified severity, without behavioral disturbance, psychotic disturbance, mood disturbance, and anxiety; I89.0 Lymphedema, not elsewhere classified; Z66 Do not resuscitate; Z88.5 Allergy status to narcotic agent; Z88.0 Allergy status to penicillin; Z88.7 Allergy status to serum and vaccine; Z88.8 Allergy status to other drugs, medicaments and biological substances; Z79.01 Long term (current) use of anticoagulants; Z79.899 Other long term (current) drug therapy; Z87.891 Personal history of nicotine dependence; Z20.822 Contact with and (suspected) exposure to COVID-19
CPT/HCPCS: 36415; 70450; 71045; 71250; 80048; 80053; 80061; 80076; 82728; 82805; 83540; 83605; 83735; 83880; 84132; 84439; 84443; 84466; 84484; 85025; 85610; 87040; 93005; 94010; 94640; 97116; 97161; 97530; 99285; J0692; J1650; J1940; J2920; J2930; J3370; J7040; J7050; U0003